=== PATIENT | male | born 1985 | race Caucasian/White ===

== ENCOUNTER 2023-06-18 08:37 | Emergency (ER) | payer MEDICARE, SELFPAY ==
[2023-06-18 08:43] VITALS: BP 135/88; PULSE 117; RESP 20; TEMP 36.3; O2SAT 99
--- NOTE | 2023-06-18 08:44 | PC.NURSE ---
Male pt here for suicidal thoughts. Pt placed in paper scrubs, personal belongings placed in med room.
[2023-06-18 09:05] LABS: Appearance Urine Clear (Clear); Bilirubin Urine Negative (Negative); Blood Urine Negative (Negative); Color Urine Light Yellow (Yellow); Glucose Urine UA Negative (Negative); Ketones Urine Negative (Negative); Leukocyte Esterase Ur Negative LEU/UL (Negative); Nitrate Urine Negative (Negative); Protein Urine Negative (Negative); Urobilinogen Urine 0.2 mg/dL (0.2-1.0)
[2023-06-18 09:11] LABS: Amphetamine Screen Urine Negative (Negative); Barbiturate Screen Urine Negative (Negative); Benzodiazepines Screen Urine Negative (Negative); Cannabinoid Screen Urine Negative (Negative); Cocaine Screen Urine Negative (Negative); Methadone Screen Urine Negative (Negative); Opiate Screen Urine Negative (Negative); Phencyclidine Screen Urine Negative (Negative)
[2023-06-18 09:13] LABS: Basophils Absolute Auto 0.01 K/mm3 (0.00-0.10); Basophils Percent Auto 0.2 % (0.0-1.0); Eosinophils Absolute Auto 0.01 K/mm3 (0.02-0.50); Eosinophils Percent Auto 0.2 % (1.0-6.0); Hematocrit 43.3 % (40.0-54.0); Hemoglobin 15.2 g/dL (14.0-18.0); Immature Granulocyte Absolute 0.02 K/mm3 (0.00-0.00); Immature Granulocyte Percent A 0.4 % (0.0-0.0); Lymphocytes Absolute Auto 0.74 K/mm3 (1.10-4.50); Mean Corpuscular HGB Conc 35.1 g/dL (32.0-36.0); Mean Corpuscular Hemoglobin 32.3 pg (27.0-31.0); Mean Corpuscular Volume 91.9 fL (78.0-102.0); Mean Platelet Volume 9.5 fl (8.7-11.0); Monocytes Absolute Auto 0.62 K/mm3 (0.10-0.90); Monocytes Percent Auto 11.8 % (2.0-11.0); Neutrophils Absolute Auto 3.9 K/mm3 (1.7-7.2); Neutrophils Percent Auto 73.4 % (50.0-70.0); Platelet Count Result 191 K/mm3 (150-420); Red Blood Count 4.71 M/mm3 (4.70-6.10); Red Cell Distribution Width 12.8 % (11.6-14.4); White Blood Count 5.3 K/mm3 (4.8-10.8)
[2023-06-18 09:17] LABS: Add Urine Microscopic? NO
--- NOTE | 2023-06-18 09:19 | ED.GENADULT ---
HPI - General Adult General Chief complaint: Psychiatric Symptoms Stated complaint: Mental evaluation Time Seen by Provider: 06/18/23 08:54 History of Present Illness HPI narrative: Tirso is a 37M with a PMH of SI, schitzoaffective disorder, and ADHD that presented to the ED with SI. He has been having worsening thoughts for weeks. He has been off his meds as well. He denied any other pain or medical concern. Related Data Home Medications Medication Instructions Recorded Confirmed escitalopram oxalate 10 mg tablet 10 mg PO DAILY 06/18/23 06/18/23 (Lexapro) gabapentin 300 mg capsule 300 mg PO TID 06/18/23 06/18/23 haloperidol 10 mg tablet 10 mg PO HS 06/18/23 06/18/23 haloperidol 5 mg tablet 10 mg PO BID 06/18/23 06/18/23 propranolol 20 mg tablet 20 mg PO TID 06/18/23 06/18/23 Allergies Allergy/AdvReac Type Severity Reaction Status Date / Time No Known Allergies Allergy Verified 06/18/23 09:06 Review of Systems Review of Systems: All systems reviewed & are unremarkable except as noted in HPI and below [facility] Social History Social History Substance use type: marijuana Exam Const: General: cooperative, healthy appearing, comfortable, no acute distress, well developed, alert, awake and Physically active Orientation/consciousness: oriented to person, oriented to place and oriented to time HENMT: Head: normal to inspection, normocephalic and atraumatic Ears: hearing grossly normal bilaterally and external ears normal Face/Nose/Sinus: Normal external nose present Eyes: General: appearance normal, both eyes and all related structures Periorbital: periorbital findings normal Sclera: sclerae normal Pupils: Equal, round and reactive pupils present Neck: Neck: normal visual inspection Chest: Chest palpation & inspection: normal inspection of the chest Resp: Effort & Inspection: normal respiratory effort, able to speak in complete sentences and no respiratory distress Auscultation: clear to auscultation bilaterally Cardio: Jugular venous distension: no JVD Rate: regular rate Rhythm: regular rhythm GI: Inspection: normal to inspection GI Palp: Yes Soft to palpation Auscultation: normal bowel sounds Skin: General skin exam: normal color and no rashes or lesions noted Neuro: General: oriented to person, oriented to place and oriented to time Cranial nerves: Yes Equal, round and reactive pupils present Extrem: General: normal to inspection Psych: Mental Status: mental status grossly normal Affect: Sad affect present Attitude: cooperative Course Course Emergency Course: Ordered labs and EKG EKG showed sinus tachycardia with a rate of 104, LAD and signs of LVH but no ST elevation/depression Labs wnl. [facility]. [facility] agreed with placement and he was transferred to [place] for psychiatry services. Vital Signs Vital signs: Vital Signs Temperature 97.4 F L 06/18/23 08:43 Pulse Rate 117 H 06/18/23 08:43 Respiratory Rate 20 06/18/23 08:43 Blood Pressure 135/88 06/18/23 08:43 Pulse Oximetry 99 06/18/23 08:43 Oxygen Delivery Room Air 06/18/23 08:43 Temperature 98.1 F 06/18/23 16:55 Pulse Rate 92 06/18/23 16:55 Respiratory Rate 20 06/18/23 16:55 Blood Pressure 128/82 06/18/23 16:55 Pulse Oximetry 99 06/18/23 16:55 Oxygen Delivery Room Air 06/18/23 16:55 Medical Decision Making Vital Signs Vital Signs: Vital Signs Temperature 97.4 F L 06/18/23 08:43 Pulse Rate 117 H 06/18/23 08:43 Respiratory Rate 20 06/18/23 08:43 Blood Pressure 135/88 06/18/23 08:43 Pulse Oximetry 99 06/18/23 08:43 Oxygen Delivery Room Air 06/18/23 08:43 Temperature 98.1 F 06/18/23 16:55 Pulse Rate 92 06/18/23 16:55 Respiratory Rate 06/18/23 16:55 Blood Pressure 128/82 06/18/23 16:55 Pulse Oximetry 99 06/18/23 16:55 Oxygen Delivery Room Air
[2023-06-18 09:39] LABS: Alanine Aminotransferase 30 U/L (16-63); Albumin Level 3.4 g/dL (3.4-5.0); Alkaline Phosphatase 66 U/L (46-116); Anion Gap 8 mmol/L (8-16); Aspartate Amino Transferase 23 U/L (15-37); Bilirubin,Total 0.3 mg/dL (0.00-1.00); Blood Urea Nitrogen 8 mg/dL (7-18); Calcium 8.2 mg/dL (8.5-10.1); Carbon Dioxide 31 mmol/L (21-32); Chloride 96 mmol/L (98-108); Estimated CRCL calculation 93 ml/min; Estimated Glomerular Filt Rate > 60; Glucose 191 mg/dL (70-99); Osmolality Calculated 283 mOsm/kg (285-295); Potassium 4.1 mmol/L (3.5-5.1); Sodium 135 mmol/L (136-145); Thyroid Stimulating Hormone 0.54 uIU/mL (0.36-3.74); Total Protein 6.9 g/dL (6.4-8.2)
[2023-06-18 09:40] LABS: Acetaminophen < 2 ug/mL (10-30); Ethanol < 3 mg/dL (0-6)
[2023-06-18 09:41] LABS: Salicylate 1.5 mg/dL (2.8-20.0)
[2023-06-18] MEDS: HALOPERIDOL 1 MG TABLET PO (09:55)
[2023-06-18 12:00] VITALS: BP 130/80; PULSE 108; RESP 20; O2SAT 99
[2023-06-18] MEDS: LORazepam (*CRX) 1 MG TABLET PO (12:49)
[2023-06-18] MEDS: NICOTINE (*PBKC) 14 MG PATCH 1 PATCH TRANSDERM (15:55)
[2023-06-18 16:11] LABS: SARS-CoV-2 Ag Negative (Negative)
[2023-06-18 16:55] VITALS: BP 128/82; PULSE 92; RESP 20; TEMP 36.7; O2SAT 99
== END 2023-06-18 16:55 ==
PROVIDERS: Emergency Provider Family Medicine
DX: F32.A Depression, unspecified (principal); R45.851 Suicidal ideations; Z79.899 Other long term (current) drug therapy; Z20.822 Contact with and (suspected) exposure to COVID-19
CPT/HCPCS: 36415; 80053; 80307; 81003; 84443; 85025; 87426; 93005; 99285; A9270

== ENCOUNTER 2023-07-05 07:54 | Emergency (ER) | payer MEDICARE, BC, SELFPAY ==
[2023-07-05] VITALS (7 sets, daily range): BP systolic 107–128; BP diastolic 69–95; PULSE 62–100; RESP 14–20; TEMP 36.2–36.9; O2SAT 97–100
--- NOTE | 2023-07-05 08:05 | ECG_ITS ---
Measurements Intervals [place] Rate: 74 P: 26 NV: 125 QRS: -36 QRSD: 93 T: -17 QT: 395 QTc: 439 Interpretive Statements SINUS RHYTHM LEFT AXIS DEVIATION [QRS AXIS < -30] VOLTAGE CRITERIA FOR LVH [MEETS CRITERIA IN ONE OF: R(aVL), S(V1), R(V5), R (V5/V6)+S(V1)] ST ELEVATION, CONSIDER INJURY PATTERN, EARLY REPOLARIZATION OR PERICARDITIS ABNORMAL ECG COMPARED TO ECG 06/18/2023 09:11:36 [address]M NOW PRESENT [address] (T WAVE) DEVIATION NOW PRESENT Electronically Signed On 07-05-2023 14:02:35 TILE [employer]OLDER HAND by Rian Navarrete M.D.
[2023-07-05 08:15] LABS: Appearance Urine Clear (Clear); Bilirubin Urine Negative (Negative); Blood Urine Negative (Negative); Color Urine Yellow (Yellow); Glucose Urine UA Negative (Negative); Ketones Urine Trace (Negative); Leukocyte Esterase Ur Negative LEU/UL (Negative); Nitrate Urine Negative (Negative); Protein Urine Negative (Negative); Specific Grav Ur <= 1.005 (1.010-1.020); Urobilinogen Urine 0.2 mg/dL (0.2-1.0); pH Urine 6.5 (5.0-8.0)
[2023-07-05] MEDS: ALPRAZolam (*CRX) 0.5 MG TABLET PO ×2 (08:20→14:51)
[2023-07-05 08:21] LABS: Amphetamine Screen Urine Negative (Negative); Barbiturate Screen Urine Negative (Negative); Benzodiazepines Screen Urine Negative (Negative); Cannabinoid Screen Urine Negative (Negative); Cocaine Screen Urine Negative (Negative); Methadone Screen Urine Negative (Negative); Opiate Screen Urine Negative (Negative); Phencyclidine Screen Urine Negative (Negative)
[2023-07-05] MEDS: NICOTINE (*PBKC) 21 MG PATCH 1 PATCH TRANSDERM (08:21)
[2023-07-05 08:22] LABS: Basophils Absolute Auto 0.03 K/mm3 (0.00-0.10); Basophils Percent Auto 0.4 % (0.0-1.0); Eosinophils Absolute Auto 0.13 K/mm3 (0.02-0.50); Eosinophils Percent Auto 1.7 % (1.0-6.0); Hematocrit 42.3 % (40.0-54.0); Hemoglobin 15.2 g/dL (14.0-18.0); Immature Granulocyte Absolute 0.02 K/mm3 (0.00-0.00); Immature Granulocyte Percent A 0.3 % (0.0-0.0); Lymphocytes Absolute Auto 1.89 K/mm3 (1.10-4.50); Lymphocytes Percent Auto 24.1 % (18.0-42.0); Mean Corpuscular HGB Conc 35.9 g/dL (32.0-36.0); Mean Corpuscular Hemoglobin 32.6 pg (27.0-31.0); Mean Corpuscular Volume 90.8 fL (78.0-102.0); Mean Platelet Volume 9.5 fl (8.7-11.0); Monocytes Percent Auto 6.4 % (2.0-11.0); Neutrophils Absolute Auto 5.3 K/mm3 (1.7-7.2); Neutrophils Percent Auto 67.1 % (50.0-70.0); Platelet Count Result 234 K/mm3 (150-420); Red Blood Count 4.66 M/mm3 (4.70-6.10); Red Cell Distribution Width 11.9 % (11.6-14.4); White Blood Count 7.8 K/mm3 (4.8-10.8)
[2023-07-05 08:24] LABS: Add Urine Microscopic? YES; Bacteria Urine Rare /hpf; RBC Urine None seen /hpf (0-2); WBC Urine None seen /hpf (0-3)
[2023-07-05 08:38] LABS: Alanine Aminotransferase 43 U/L (16-63); Albumin Level 3.7 g/dL (3.4-5.0); Alkaline Phosphatase 80 U/L (46-116); Anion Gap 10 mmol/L (8-16); Aspartate Amino Transferase 15 U/L (15-37); Bilirubin,Total 0.5 mg/dL (0.00-1.00); Blood Urea Nitrogen 11 mg/dL (7-18); Calcium 8.7 mg/dL (8.5-10.1); Carbon Dioxide 27 mmol/L (21-32); Chloride 95 mmol/L (98-108); Estimated CRCL calculation 99 ml/min; Estimated Glomerular Filt Rate > 60; Glucose 161 mg/dL (70-99); Osmolality Calculated 276 mOsm/kg (285-295); Potassium 3.9 mmol/L (3.5-5.1); Sodium 132 mmol/L (136-145); Total Protein 7.3 g/dL (6.4-8.2)
[2023-07-05 08:39] LABS: Ethanol < 3 mg/dL (0-6)
[2023-07-05 08:59] LABS: Thyroid Stimulating Hormone Reflex 0.79 u/IU/mL (0.36-3.74)
[2023-07-05 09:00] LABS: SARS-CoV-2 RNA PCR Negative (Negative)
[2023-07-05 09:03] LABS: Influenza A QL RT-PCR Negative (Negative); Influenza B QL RT-PCR Negative (Negative); RSV RNA, RT-PCR Negative (Negative)
--- NOTE | 2023-07-05 10:17 | ED.PSYCH ---
HPI - Psych General Chief Complaint: Psychiatric Symptoms Stated Complaint: suicidal thoughts Time Seen by Provider: 07/05/23 08:05 Source: patient Mode of arrival: ambulatory Limitations: no limitations History of Present Illness HPI Narrative: This is a 37-year-old male with some history of bipolar disorder and depression recently released from [facility], and has been having suicidal ideation since his release. Patient does have patient does have an appointment scheduled but is in a week at [facility] and has been having pervasive thoughts of suicide without a clear plan. Otherwise there is no chest pain no shortness of breath no fever chills no abdominal pain. MD complaint: suicidal ideation and feels depressed Onset (ago): day(s) Duration: constant History of same: Yes Relieving factors: none Exacerbating factors: none Associated psychiatric symptoms: depression and suicidal ideation Associated symptoms: denies other symptoms If self harm: admits thoughts of self harm Related Data Home Medications Medication Instructions Recorded Confirmed escitalopram oxalate 10 mg tablet 10 mg PO DAILY 06/18/23 06/18/23 (Lexapro) gabapentin 300 mg capsule 300 mg PO TID 06/18/23 06/18/23 haloperidol 10 mg tablet 10 mg PO HS 06/18/23 06/18/23 haloperidol 5 mg tablet 10 mg PO BID 06/18/23 06/18/23 propranolol 20 mg tablet 20 mg PO TID 06/18/23 06/18/23 Allergies Allergy/AdvReac Type Severity Reaction Status Date / Time No Known Allergies Allergy Verified 07/05/23 08:12 Review of Systems Review of Systems: All systems reviewed & are unremarkable except as noted in HPI and below PMFSH Past Medical History Medical History Bipolar disorder Social History Social History Substance use type: marijuana Exam Const: General: no acute distress Nutritional Appearance: well nourished Orientation/consciousness: patient oriented x3 Limitations: no limitations Neck: Neck: normal visual inspection, no lymphadenopathy and no meningeal signs Chest: Chest palpation & inspection: normal inspection of the chest Resp: Effort & Inspection: normal respiratory effort Auscultation: clear to auscultation bilaterally Cardio: Rate: regular rate Rhythm: regular rhythm GI: GI Palp: Yes Soft to palpation Auscultation: normal bowel sounds Skin: General skin exam: normal color Rashes: no rashes Neuro: General: patient oriented x3, moves all extremities, no meningeal signs and no focal motor deficits Psych: Affect: Sad affect present Course Course Emergency Course: patient labs an EKG reviewed and within normal limits mental health here to evaluate patient for further evaluation and treatment. patient after evaluation has been accepted for further evaluation at [facility]. Vital Signs Vital signs: Vital Signs Temperature 36.2 C L 07/05/23 07:54 Pulse Rate 83 07/05/23 07:54 Respiratory Rate 20 07/05/23 07:54 Blood Pressure 107/95 H 07/05/23 07:54 Pulse Oximetry 100 07/05/23 07:54 Oxygen Delivery Room Air 07/05/23 07:54 Temperature 36.6 C 07/05/23 14:52 Pulse Rate 87 07/05/23 14:52 Respiratory Rate 16 07/05/23 14:52 Blood Pressure 124/87 07/05/23 14:52 Pulse Oximetry 100 07/05/23 14:52 Oxygen Delivery Room Air 07/05/23 14:52 MDM - Psych Lab Data 07/05/23 08:17 07/05/23 08:17 Labs: Lab Results 07/05/23 07/05/23 Range/Units 08:06 08:17 WBC 7.8 (4.8-10.8) K/mm3 RBC 4.66 L (4.70-6.10) M/mm3 Hgb 15.2 (14.0-18.0) g/dL Hct 42.3 (40.0-54.0) % MCV 90.8 (78.0-102.0) fL MCH 32.6 H (27.0-31.0) pg MCHC 35.9 (32.0-36.0) g/dL RDW 11.9 (11.6-14.4) % Plt Count 234 (150-420) K/mm3 MPV 9.5 (8.7-11.0) fl Immature Gran % (Auto) 0.3 H (0.0-0.0) % Neut % (Auto) 67.1 (50
== END 2023-07-05 18:23 ==
PROVIDERS: Emergency Provider Emergency Medicine; PCP Nurse Practitioner Family
DX: R45.89 Other symptoms and signs involving emotional state (principal); F31.9 Bipolar disorder, unspecified; Z20.822 Contact with and (suspected) exposure to COVID-19; Z79.899 Other long term (current) drug therapy
CPT/HCPCS: 36415; 80053; 80307; 81001; 84443; 85025; 87637; 93005; 99285; A9270

== ENCOUNTER 2023-07-15 07:58 | Emergency (ER) | payer MEDICARE, SELFPAY ==
[2023-07-15 08:04] VITALS: BP 154/104; PULSE 74; RESP 20; TEMP 36.8; O2SAT 99
--- NOTE | 2023-07-15 08:24 | ED.ALLEREA ---
HPI - Allergic Reaction General Chief complaint: Allergic Reaction Stated complaint: restless legs; anxiety Time Seen by Provider: 07/15/23 08:11 Source: patient Mode of arrival: ambulatory Limitations: no limitations History of Present Illness HPI narrative: Patient is a 37-year-old male who was on Haldol. He has a psychiatrist. He is here with restless leg complaints. Onset (ago): day(s) (3) Exposure: medication ( Haldol without anticholinergic for 1 year) Symptoms: other ( restless legs) Severity: moderate Treatment prior to arrival: none Previous Allergic Reaction History: none Related Data Home Medications Medication Instructions Recorded Confirmed escitalopram oxalate 10 mg tablet 10 mg PO DAILY 06/18/23 07/15/23 (Lexapro) gabapentin 300 mg capsule 300 mg PO TID 06/18/23 07/15/23 haloperidol 10 mg tablet 10 mg PO HS 06/18/23 07/15/23 propranolol 20 mg tablet 20 mg PO TID 06/18/23 07/15/23 bupropion HCl 300 mg 24 hr tablet, 300 mg PO DAILY 07/15/23 07/15/23 extended release buspirone 10 mg tablet 10 mg PO BID 07/15/23 07/15/23 escitalopram oxalate 10 mg tablet 10 mg PO DAILY 07/15/23 07/15/23 venlafaxine 75 mg capsule,extended 75 mg PO QAM 07/15/23 07/15/23 release 24 hr Allergies Allergy/AdvReac Type Severity Reaction Status Date / Time No Known Allergies Allergy Verified 07/15/23 08:07 Review of Systems Review of Systems: All systems reviewed & are unremarkable except as noted in HPI and below Constitutional: Constitutional: Reports no additional constitutional complaints Eyes: Eyes: Reports no additional eye complaints ENT: Reports system reviewed and no additional complaints, except as documented Cardiovascular: Cardiovascular: Reports no additional cardiovascular complaints Respiratory: Respiratory: Reports no additional respiratory complaints Gastrointestinal: Gastrointestinal: Reports no additional gastrointestinal complaints Genitourinary: Genitourinary: Reports no additional male genitourinary complaints Musculoskeletal: Musculoskeletal: Reports no additional musculoskeletal complaints Integumentary/Breasts: Skin/Breast: Reports system reviewed and no additional complaints, except as docu Neurologic: Reports system reviewed and no additional complaints, except as documented Psychiatric: Psychiatric: Reports no additional psychiatric complaints Endocrine: Endocrine: Reports no additional endocrine complaints Hematologic/Lymphatic: Hematologic/Lymphatic: Reports no additional hematologic/lymphatic complaints Allergic/Immunologic: Allergic/Immunologic: Reports no additional allergic/immunologic complaints [facility] Past Medical History Medical History Bipolar disorder Social History Social History Substance use type: marijuana Exam Const: General: healthy appearing Nutritional Appearance: well nourished Orientation/consciousness: patient oriented x3 HENMT: Head: normal to inspection Ears: external ears normal Face/Nose/Sinus: Normal external nose present Eyes: Conjunctivae: conjunctivae normal Pupils: Equal, round and reactive pupils present EOM: EOMs intact bilaterally Neck: Neck: normal visual inspection Chest: Chest palpation & inspection: normal inspection of the chest Resp: Effort & Inspection: normal respiratory effort and not labored Auscultation: clear to auscultation bilaterally and no crackles Cardio: Rate: regular rate Rhythm: regular rhythm Heart sounds: no murmurs GI: Inspection: non-distended GI Palp: Yes Soft to palpation and No Tenderness to palpation present (GI) Auscultation: normal bowel sounds : General: Yes bladder normal to palpation Back/Spine/Pelvis: Back: no CVA tenderness Skin: General skin exam: normal color Rashes: no rashes Wounds: no wounds Neuro: General: patient oriented x3 Cranial nerves: Yes Nysta
[2023-07-15] MEDS: diphenhydrAMINE HCl INJ 50 MG/ML VIAL 25 MG IM (08:43)
[2023-07-15 09:00] VITALS: BP 149/101; PULSE 81
== END 2023-07-15 09:00 | disposition home or self-care (01) ==
PROVIDERS: Emergency Provider Emergency Medicine; PCP Nurse Practitioner Family
DX: G25.71 Drug induced akathisia (principal); T43.4X5A Adverse effect of butyrophenone and thiothixene neuroleptics, initial encounter; Z79.899 Other long term (current) drug therapy
CPT/HCPCS: 96372; 99283; J1200

== ENCOUNTER 2023-08-02 19:05 | Emergency (ER) | payer MEDICARE, SELFPAY ==
--- NOTE | 2023-08-02 19:19 | ECG_ITS ---
Measurements Intervals [place] Rate: 77 P: 63 [place]: 139 QRS: -37 QRSD: 94 T: 18 QT: 391 QTc: 445 Interpretive Statements SINUS RHYTHM LEFT AXIS DEVIATION INCOMPLETE RIGHT BUNDLE BRANCH BLOCK VOLTAGE CRITERIA FOR LVH MINIMAL Q WAVES- HIGH LATERAL LEADS BASELINE ARTIFACT- V3 BORDERLINE ECG COMPARED TO ECG 07/05/2023 08:07:23 NO SIGNIFICANT CHANGES Electronically Signed On 08-02-2023 19:54:39 CDT by Eldon Barrios D.O.
[2023-08-02 19:26] VITALS: BP 108/88; PULSE 90; RESP 18; TEMP 37; O2SAT 97
--- NOTE | 2023-08-02 19:26 | ED.ANXIETY ---
HPI - Anxiety General Chief Complaint: Anxiety Stated Complaint: Panic Attack Time Seen by Provider: 08/02/23 19:12 Source: patient Mode of arrival: ambulatory Limitations: no limitations History of Present Illness HPI narrative: This is a 37-year-old male who presents with panic attacks after his father had a brief illness and in the hospital and has been having trouble falling asleep, the patient does have a history of depression anxiety otherwise no suicidal ideation does have palpitations with no chest pain no shortness of breath no fever chills. complaint: anxiety Onset (ago): hour(s) Symptoms: palpitations Quality: intermittent Place: home History of similar episodes: Yes Provoking factors: emotional stress Related Data Home Medications Medication Instructions Recorded Confirmed escitalopram oxalate 10 mg tablet 10 mg PO DAILY 06/18/23 08/02/23 (Lexapro) haloperidol 10 mg tablet 10 mg PO HS 06/18/23 08/02/23 Allergies Allergy/AdvReac Type Severity Reaction Status Date / Time No Known Allergies Allergy Verified 08/02/23 19:19 Review of Systems Review of Systems: All systems reviewed & are unremarkable except as noted in HPI and below PMFSH Past Medical History Medical History Bipolar disorder Social History Social History Substance use type: marijuana Exam Const: General: no acute distress Nutritional Appearance: well nourished Orientation/consciousness: patient oriented x3 Limitations: no limitations Resp: Effort & Inspection: normal respiratory effort Auscultation: clear to auscultation bilaterally Cardio: Rate: regular rate Rhythm: regular rhythm GI: GI Palp: Yes Soft to palpation Auscultation: normal bowel sounds Skin: General skin exam: normal color Rashes: no rashes Neuro: General: patient oriented x3 and moves all extremities Extrem: General: normal to inspection Psych: Mental Status: mental status grossly normal Affect: Anxious affect present Course Course Emergency Course: Patient having grieving disorder after his father EKG with no abnormalities patient did receive a dose of 0.5 Xanax which did help his panic/ anxiety. Critical Care Time Critical Care Time Critical Care Time: No Discharge Plan Discharge Clinical Impression: Acute anxiety, Panic disorder, Grieving Patient Disposition: Home, Self-Care Condition: Stable Instructions: Antibiotic Form, Grief and Loss (ED), Panic Disorder (ED), Anxiety (ED) Additional Instructions: advised patient to take medicine as prescribed and follow with primary within the next 2 to 3 days for further evaluation treatment Prescriptions: New alprazolam [Xanax] 0.5 mg tablet 0.5 mg PO BID PRN (Reason: anxiety) Qty: 14 0RF No Action haloperidol 10 mg tablet 10 mg PO HS escitalopram oxalate [Lexapro] 10 mg tablet 10 mg PO DAILY Follow-up/Referrals: Sheri Grimes NUTRITION AND DIETETICS INSTRUCTOR [Primary Care Provider] -
[2023-08-02] MEDS: ALPRAZolam (*CRX) 0.5 MG TABLET PO (19:31)
[2023-08-02 19:43] VITALS: PULSE 89; RESP 16; O2SAT 100
== END 2023-08-02 19:43 | disposition home or self-care (01) ==
PROVIDERS: Emergency Provider Emergency Medicine; PCP Nurse Practitioner Family
DX: F41.9 Anxiety disorder, unspecified (principal); F41.0 Panic disorder [episodic paroxysmal anxiety]; F43.21 Adjustment disorder with depressed mood; Z79.899 Other long term (current) drug therapy
CPT/HCPCS: 93005; 99283; A9270

== ENCOUNTER 2023-08-04 15:51 | Emergency (ER) | payer MEDICARE, SELFPAY ==
[2023-08-04 15:54] VITALS: BP 135/88; PULSE 84; RESP 19; TEMP 36.2; O2SAT 98
--- NOTE | 2023-08-04 15:54 | ED.ANXIETY ---
HPI - Anxiety General Chief Complaint: Anxiety Stated Complaint: PANIC ATTACK Time Seen by Provider: 08/04/23 15:53 Source: patient Mode of arrival: ambulatory History of Present Illness HPI narrative: This is a 37-year-old male with history of bipolar disorder on Haldol patient presents because of anxiety and was recently seen 2 days ago and was prescribed Xanax, told the nurse that he threw his Xanax away, and told me that he lost his Xanax. Advised that he follows up with his primary/ psychiatry for further treatment, patient is not suicidal. There is no chest pain no shortness of breath no abdominal pain no fever chills complaint: anxiety Onset (ago): day(s) Provoking factors: emotional stress Related Data Home Medications Medication Instructions Recorded Confirmed escitalopram oxalate 10 mg tablet 10 mg PO DAILY 06/18/23 08/04/23 (Lexapro) haloperidol 10 mg tablet 10 mg PO HS 06/18/23 08/04/23 bupropion HCl 300 mg 24 hr tablet, 300 mg PO DAILY 08/04/23 08/04/23 extended release Allergies Allergy/AdvReac Type Severity Reaction Status Date / Time No Known Allergies Allergy Verified 08/04/23 15:52 Review of Systems Review of Systems: All systems reviewed & are unremarkable except as noted in HPI and below PMFSH Past Medical History Medical History Bipolar disorder Social History Social History Substance use type: prescription drug Exam Const: General: no acute distress Nutritional Appearance: well nourished Limitations: no limitations Chest: Chest palpation & inspection: normal inspection of the chest Resp: Effort & Inspection: normal respiratory effort Auscultation: clear to auscultation bilaterally Cardio: Rate: regular rate Rhythm: regular rhythm GI: GI Palp: Yes Soft to palpation Neuro: General: patient oriented x3, moves all extremities, no meningeal signs and no focal motor deficits Extrem: General: normal to inspection Psych: Affect: Anxious affect present Course Course Emergency Course: advised patient that he needs to follow up with his Primary/ Psychiatry continue his Haldol and will give a dose of p.o. Xanax here in the ER but will not prescribe any medication to his pharmacy. Critical Care Time Critical Care Time Critical Care Time: No Discharge Plan Discharge Clinical Impression: Bipolar disorder, Anxiety Condition: Stable Instructions: Antibiotic Form, Anxiety (ED) Additional Instructions: advised follow-up with primary as soon as possible for further evaluation treatment and possible referral to Psychiatry. Prescriptions: No Action bupropion HCl 300 mg tablet extended release 24 hr 300 mg PO DAILY haloperidol 10 mg tablet 10 mg PO HS escitalopram oxalate [Lexapro] 10 mg tablet 10 mg PO DAILY alprazolam [Xanax] 0.5 mg tablet 0.5 mg PO BID PRN (Reason: anxiety) Qty: 14 0RF Follow-up/Referrals: Sheri Grimes N[employer]K BAND MAKER [Primary Care Provider] - Time of Disposition: 15:59
--- NOTE | 2023-08-04 16:08 | PC.NURSE ---
Patient states he walked to the ED and is walking home. Xanax safe to give.
[2023-08-04] MEDS: ALPRAZolam (*CRX) 0.5 MG TABLET PO (16:09)
[2023-08-04 16:34] VITALS: BP 135/88; PULSE 84; RESP 19; TEMP 36.2; O2SAT 98
== END 2023-08-04 16:34 | disposition home or self-care (01) ==
PROVIDERS: Emergency Provider Emergency Medicine; PCP Nurse Practitioner Family
DX: F31.9 Bipolar disorder, unspecified (principal); F41.9 Anxiety disorder, unspecified; Z79.899 Other long term (current) drug therapy
CPT/HCPCS: 99283; A9270

== ENCOUNTER 2023-08-07 10:11 | Emergency (ER) | payer MEDICARE, SELFPAY ==
[2023-08-07 10:16] VITALS: BP 152/114; PULSE 97; RESP 20; TEMP 36.8; O2SAT 97
[2023-08-07 10:17] VITALS: BP 152/114; PULSE 97; RESP 20; TEMP 36.8; O2SAT 97
--- NOTE | 2023-08-07 10:20 | ED.GENADULT ---
HPI - General Adult General Chief complaint: Anxiety Stated complaint: Panic Attack Time Seen by Provider: 08/07/23 10:15 History of Present Illness HPI narrative: This is a 37-year-old male with history of anxiety and bipolar disorder presenting for an anxiety attack. Started 2 hours prior to arrival. Patient was trying to not complete hospital since she has been here multiple times for the same complaint over last week. Patient had a prescription for Xanax which he either lost threw away he is unsure. Patient denies SI HI. This is the patient's typical anxiety attack. patient had an appointment today to establish primary care but was canceled by the clinic. Related Data Home Medications Medication Instructions Recorded Confirmed escitalopram oxalate 10 mg tablet 10 mg PO DAILY 06/18/23 08/07/23 (Lexapro) haloperidol 10 mg tablet 10 mg PO HS 06/18/23 08/07/23 Allergies Allergy/AdvReac Type Severity Reaction Status Date / Time No Known Allergies Allergy Verified 08/07/23 10:16 [facility] Past Medical History Medical History Bipolar disorder Social History Social History Substance use type: prescription drug Exam Narrative: APPEARANCE: No apparent distress. Head: atraumatic. EYES: EOMI, NOSE: Atraumatic NECK: Trachea midline RESPIRATORY: No increased rate of breathing CTAB CARDIOVASCULAR: RRR, ABDOMINAL: Non-distended MUSCULOSKELETAl: No obvious deformities NEURO: Alert. Moving 4/4 extremities SKIN:: Warm, dry. Normal color PSYCHIATRIC: anxious Course Vital Signs Vital signs: Vital Signs Temperature 98.3 F 08/07/23 10:16 Pulse Rate 97 08/07/23 10:16 Respiratory Rate 20 08/07/23 10:16 Blood Pressure 152/114 H 08/07/23 10:16 Pulse Oximetry 97 08/07/23 10:16 Oxygen Delivery Room Air 08/07/23 10:16 Temperature 98.3 F 08/07/23 10:17 Pulse Rate 97 08/07/23 10:17 Respiratory Rate 20 08/07/23 10:17 Blood Pressure 152/114 H 08/07/23 10:17 Pulse Oximetry 97 08/07/23 10:17 Oxygen Delivery Room Air 08/07/23 10:17 Medical Decision Making MDM Narrative Medical decision making narrative: -Course: 37-year-old with history of anxiety presenting an anxiety attack. Given his home dose of Xanax. Patient discharged instructed follow-up with primary care physician. -DDX includes but is not limited to: Anxiety, panic disorder, -Co-morbidities complicating care: anxiety, bipolar disorder -Social determinants of health: disabled due to psychiatric illness, lives alone -External Chart Review: review of previous ER visits for identical presentation -Interventions: 0.5 mg p.o. Xanax -Shared decision making / Disposition: discharged Vital Signs Vital Signs: Vital Signs Temperature 98.3 F 08/07/23 10:16 Pulse Rate 97 08/07/23 10:16 Respiratory Rate 20 08/07/23 10:16 Blood Pressure 152/114 H 08/07/23 10:16 Pulse Oximetry 97 08/07/23 10:16 Oxygen Delivery Room Air 08/07/23 10:16 Temperature 98.3 F 08/07/23 10:17 Pulse Rate 97 08/07/23 10:17 Respiratory Rate 20 08/07/23 10:17 Blood Pressure 152/114 H 08/07/23 10:17 Pulse Oximetry 97 08/07/23 10:17 Oxygen Delivery Room Air 08/07/23 10:17 Discharge Plan Discharge Clinical Impression: Acute anxiety Patient Disposition: Home, Self-Care Condition: Stable Instructions: Antibiotic Form, Anxiety (ED) Additional Instructions: please follow-up with your primary care physician for further management. Prescriptions: No Action haloperidol 10 mg tablet 10 mg PO HS escitalopram oxalate [Lexapro] 10 mg tablet 10 mg PO DAILY alprazolam [Xanax] 0.5 mg tablet 0.5 mg PO BID PRN (Reason: anxiety) Qty: 14 0RF Follow-up/Referrals: Sheri Grimes NP [Primary Care Provider] - 2 Days (Establish pcp. Anxiety)
[2023-08-07] MEDS: ALPRAZolam (*CRX) 0.5 MG TABLET PO (10:27)
[2023-08-07 10:40] VITALS: BP 151/88; PULSE 81; RESP 18; O2SAT 99
== END 2023-08-07 10:40 | disposition home or self-care (01) ==
LOC: CHSED 10:36
PROVIDERS: Emergency Provider Emergency Medicine; PCP Nurse Practitioner Family
DX: F41.9 Anxiety disorder, unspecified (principal); F31.9 Bipolar disorder, unspecified
CPT/HCPCS: 99283; A9270

== ENCOUNTER 2023-08-07 17:48 | Emergency (ER) | payer MEDICARE, SELFPAY ==
[2023-08-07 17:52] VITALS: BP 114/70; PULSE 97; RESP 18; TEMP 36.6; O2SAT 97
--- NOTE | 2023-08-07 17:58 | ED.GENADULT ---
HPI - General Adult General Chief complaint: Psychiatric Symptoms Stated complaint: Suicidal ideation History of Present Illness HPI narrative: This is a 37 male history anxiety bipolar disorder presenting for suicidal ideation. Patient was seen in our emergency department earlier today requesting more Xanax for panic disorder He was given 1 po dose of xanax and given a prescription for hydroxyzine. patient said that did not help his anxiety. Now he is saying he is suicidal. He says he will jump into traffic. Patient says he is embarrassed that he keeps having to come to the emergency department to ask for xanax. Patient was given a prescription for 14 xanax on 08/01. He filled the script prescription then returned on 08/03 for saying that he lost the pills. Patient was transferred to [facility] on 07/05/2023 for depression/suicidal ideation. Related Data Home Medications Medication Instructions Recorded Confirmed escitalopram oxalate 10 mg tablet 10 mg PO DAILY 06/18/23 08/07/23 (Lexapro) haloperidol 10 mg tablet 10 mg PO HS 06/18/23 08/07/23 Allergies Allergy/AdvReac Type Severity Reaction Status Date / Time No Known Allergies Allergy Verified 08/07/23 17:53 [facility] Past Medical History Medical History Bipolar disorder Social History Social History Substance use type: prescription drug Exam Narrative: APPEARANCE: No apparent distress. Head: atraumatic. EYES: EOMI, NOSE: Atraumatic NECK: Trachea midline RESPIRATORY: No increased rate of breathing CARDIOVASCULAR: RRR, ABDOMINAL: Non-distended MUSCULOSKELETAl: No obvious deformities NEURO: Alert. Moving 4/4 extremities SKIN:: Warm, dry. Normal color PSYCHIATRIC: Anxious appearing Course Vital Signs Vital signs: Vital Signs Temperature 97.8 F 08/07/23 17:52 Pulse Rate 97 08/07/23 17:52 Respiratory Rate 18 08/07/23 17:52 Blood Pressure 114/70 08/07/23 17:52 Pulse Oximetry 97 08/07/23 17:52 Oxygen Delivery Room Air 08/07/23 17:52 Temperature 97.8 F 08/07/23 23:00 Pulse Rate 72 08/07/23 23:00 Respiratory Rate 18 08/07/23 23:00 Blood Pressure 107/67 08/07/23 23:00 Pulse Oximetry 98 08/07/23 23:00 Oxygen Delivery Room Air 08/07/23 23:00 Medical Decision Making MDM Narrative Medical decision making narrative: -Course: 37-year-old male presenting ED for suicidal ideation. patient is medically cleared for crisis of the evaluation. Patient was evaluated by crisis team and will be transferred to a psychiatric hospital. Accepted by Dr. Mesfin jiménez. -DDX includes but is not limited to: Suicidal ideation, depression, anxiety, benzodiazepine dependence, malingering/ secondary gain -Co-morbidities complicating care: anxiety, bipolar disorder -Social determinants of health: unemployed due to mental illness lives in his father's house his father recently -External Chart Review: review of ER visits on 06/18/2023, 07/05/2023, 07/15/23, 08/02/23, 08/04/23 -Independent interpretation of studies: labs reviewed -Discussion of Management/Consultants: crisis Center -Interventions: Haldol 5mg, [id number] -Shared decision making / Disposition: psych transfer. Vital Signs Vital Signs: Vital Signs Temperature 97.8 F 08/07/23 17:52 Pulse Rate 97 08/07/23 17:52 Respiratory Rate 18 08/07/23 17:52 Blood Pressure 114/70 08/07/23 17:52 Pulse Oximetry 97 08/07/23 17:52 Oxygen Delivery Room Air 08/07/23 17:52 Temperature 97.8 F 08/07/23 23:00 Pulse Rate 72 08/07/23 23:00 Respiratory Rate 18 08/07/23 23:00 Blood Pressure 107/67 08/07/23 23:00 Pulse Oximetry 98 08/07/23 23:00 Oxygen Delivery Room Air 08/07/23 23:00 Lab Data 08/07/23 18:09 08/07/23 18:09 Labs: Lab Results 08/07/23 08/07/23
[2023-08-07 18:10] VITALS: BP 96/60; PULSE 83; RESP 16; TEMP 36.3; O2SAT 98
[2023-08-07 18:12] LABS: Basophils Absolute Auto 0.02 K/mm3 (0.00-0.10); Basophils Percent Auto 0.3 % (0.0-1.0); Eosinophils Absolute Auto 0.25 K/mm3 (0.02-0.50); Eosinophils Percent Auto 3.7 % (1.0-6.0); Hematocrit 40.8 % (40.0-54.0); Hemoglobin 14.2 g/dL (14.0-18.0); Immature Granulocyte Absolute 0.02 K/mm3 (0.00-0.00); Immature Granulocyte Percent A 0.3 % (0.0-0.0); Lymphocytes Absolute Auto 2.87 K/mm3 (1.10-4.50); Mean Corpuscular HGB Conc 34.8 g/dL (32-36); Mean Corpuscular Hemoglobin 32.6 pg (27.0-31.0); Mean Corpuscular Volume 93.8 fL (78.0-102.0); Mean Platelet Volume 9.2 fl (8.7-11.0); Monocytes Absolute Auto 0.56 K/mm3 (0.10-0.90); Monocytes Percent Auto 8.2 % (2.0-11.0); Neutrophils Absolute Auto 3.11 K/mm3 (1.70-7.20); Neutrophils Percent Auto 45.5 % (50.0-70.0); Platelet Count Result 215 K/mm3 (150-420); Red Blood Count 4.35 M/mm3 (4.70-6.10); Red Cell Distribution Width 11.8 % (11.6-14.4); White Blood Count 6.8 K/mm3 (4.8-10.8)
[2023-08-07 18:25] LABS: Appearance Urine Clear (Clear); Bilirubin Urine Negative (Negative); Blood Urine Negative (Negative); Color Urine Light Yellow (Yellow); Glucose Urine UA Negative (Negative); Ketones Urine Negative (Negative); Leukocyte Esterase Ur Negative LEU/UL (Negative); Nitrate Urine Negative (Negative); Protein Urine Negative (Negative); Specific Grav Ur <= 1.005 (1.010-1.020); Urobilinogen Urine 0.2 mg/dL (0.2-1.0)
[2023-08-07 18:27] LABS: Add Urine Microscopic? NO
[2023-08-07 18:32] LABS: Amphetamine Screen Urine Negative (Negative); Barbiturate Screen Urine Negative (Negative); Benzodiazepines Screen Urine Negative (Negative); Cannabinoid Screen Urine Positive (Negative); Cocaine Screen Urine Negative (Negative); Methadone Screen Urine Negative (Negative); Opiate Screen Urine Negative (Negative); Phencyclidine Screen Urine Negative (Negative)
--- NOTE | 2023-08-07 18:33 | PC.NURSE ---
1800 - erp at bedside examining pt. erp asked are you suicidal . pt responded I can be if I don't get some ativan . pt taken to room 5. 1805 - pt changed into paper clothing and belongings removed and secured. 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 pt states he will throw himself into traffic if he gets discharged again without something stronger than the hydoxyzine. sitter at bedside.
[2023-08-07 18:39] LABS: Alanine Aminotransferase 54 U/L (16-63); Albumin Level 3.7 g/dL (3.4-5.0); Alkaline Phosphatase 89 U/L (46-116); Anion Gap 12 mmol/L (8-16); Aspartate Amino Transferase 17 U/L (15-37); Bilirubin,Total 0.3 mg/dL (0.00-1.00); Blood Urea Nitrogen 7 mg/dL (7-18); Carbon Dioxide 28 mmol/L (21-32); Chloride 104 mmol/L (98-108); Estimated Glomerular Filt Rate > 60; Glucose 96 mg/dL (70-99); Osmolality Calculated 296 mOsm/kg (285-295); Potassium 3.6 mmol/L (3.5-5.1); Salicylate 4.4 mg/dL (2.8-20.0); Sodium 144 mmol/L (136-145); Thyroid Stimulating Hormone 0.75 uIU/mL (0.36-3.74); Total Protein 7.2 g/dL (6.4-8.2)
[2023-08-07 18:40] LABS: Acetaminophen < 2 ug/mL (10-30); Ethanol < 3 mg/dL (0-6)
[2023-08-07 18:56] LABS: SARS-CoV-2 RNA PCR Negative (Negative)
[2023-08-07 18:57] LABS: Influenza A QL RT-PCR Negative (Negative); Influenza B QL RT-PCR Negative (Negative); RSV RNA, RT-PCR Negative (Negative)
--- NOTE | 2023-08-07 19:21 | PC.NURSE ---
1:1 safety and occupational health manager remains line of site. [facility] en route to ED for eval. Pt aware. Pt voices no needs. Warm blanket provided. Room check complete.
--- NOTE | 2023-08-07 19:50 | PC.NURSE ---
[facility] [place] at bedside performing assesment.
--- NOTE | 2023-08-07 20:15 | PC.NURSE ---
Perla, from [facility], provided with chart for bed search. PT aware will be placed inpatient. Pt still speaking with staff from [facility] at this time. Sitter remains at bedside for 1:1 observation. No unnecessary items in room.
[2023-08-07] MEDS: LORazepam INJ (*CRX) 2 MG/ML VIAL IM (20:40)
[2023-08-07] MEDS: HALOPERIDOL LACTATE 5 MG/ML VIAL IM (20:40)
--- NOTE | 2023-08-07 21:24 | PC.NURSE ---
[facility] in [facility] did not receive chart from [facility]. Will refax chart to [phone].
--- NOTE | 2023-08-07 21:46 | PC.NURSE ---
PT has been accepted to [facility]. Facesheet faxed to admission at this time as requested and then will provide packet to nurses on floor. Awaiting bed assignment, accepting physician name, and nurse to nurse report at this time.
--- NOTE | 2023-08-07 22:54 | PC.NURSE ---
[facility] called and is unable to transport the patient. Will try [facility]
[2023-08-07 23:00] VITALS: BP 107/67; PULSE 72; RESP 18; TEMP 36.6; O2SAT 98
== END 2023-08-07 23:23 ==
PROVIDERS: Emergency Provider Emergency Medicine; PCP Nurse Practitioner Family
DX: F41.9 Anxiety disorder, unspecified (principal); F31.9 Bipolar disorder, unspecified; Z20.822 Contact with and (suspected) exposure to COVID-19
CPT/HCPCS: 36415; 80053; 80307; 81003; 84443; 85025; 87637; 96372; 99283; 99285; A9270; J1630; J2060

== ENCOUNTER 2023-08-11 10:12 | Emergency (ER) | payer MEDICARE, SELFPAY ==
[2023-08-11 10:13] VITALS: BP 130/96; PULSE 80; RESP 20; TEMP 36.9; O2SAT 98
--- NOTE | 2023-08-11 10:14 | ED.ANXIETY ---
HPI - Anxiety General Chief Complaint: Anxiety Stated Complaint: PANIC ATTACK Time Seen by Provider: 08/11/23 10:13 Source: patient Mode of arrival: ambulatory Limitations: no limitations History of Present Illness HPI narrative: Patient is a 37-year-old male with recurrent anxiety issues. He was recently admitted to inpatient and now discharged on Zoloft. He lost his father in the past year. This is his main stimulus of anxiety and depression. Is not suicidal at this time. MD complaint: anxiety Onset (ago): day(s) Symptoms: dyspnea ( Resolved at this time) Severity: moderate Quality: constant Place: home History of similar episodes: Yes Provoking factors: emotional stress Relieving factors: nothing Exacerbating factors: nothing Associated symptoms: denies other symptoms Related Data Home Medications Medication Instructions Recorded Confirmed escitalopram oxalate 10 mg tablet 10 mg PO DAILY 06/18/23 08/11/23 (Lexapro) haloperidol 10 mg tablet 10 mg PO HS 06/18/23 08/11/23 Allergies Allergy/AdvReac Type Severity Reaction Status Date / Time No Known Allergies Allergy Verified 08/11/23 10:17 Review of Systems Review of Systems: All systems reviewed & are unremarkable except as noted in HPI and below Constitutional: Constitutional: Reports no additional constitutional complaints Eyes: Eyes: Reports no additional eye complaints ENT: Reports system reviewed and no additional complaints, except as documented Cardiovascular: Cardiovascular: Reports no additional cardiovascular complaints Respiratory: Respiratory: Reports no additional respiratory complaints Gastrointestinal: Gastrointestinal: Reports no additional gastrointestinal complaints Genitourinary: Genitourinary: Reports no additional male genitourinary complaints Musculoskeletal: Musculoskeletal: Reports no additional musculoskeletal complaints Integumentary/Breasts: Skin/Breast: Reports system reviewed and no additional complaints, except as docu Neurologic: Reports system reviewed and no additional complaints, except as documented Psychiatric: Psychiatric: Reports no additional psychiatric complaints Endocrine: Endocrine: Reports no additional endocrine complaints Hematologic/Lymphatic: Hematologic/Lymphatic: Reports no additional hematologic/lymphatic complaints Allergic/Immunologic: Allergic/Immunologic: Reports no additional allergic/immunologic complaints PMFSH Past Medical History Medical History Bipolar disorder Social History Social History Substance use type: unknown Exam Const: General: healthy appearing Nutritional Appearance: well nourished Orientation/consciousness: patient oriented x3 HENMT: Head: normal to inspection Ears: external ears normal Face/Nose/Sinus: Normal external nose present Eyes: Conjunctivae: conjunctivae normal Pupils: Equal, round and reactive pupils present EOM: EOMs intact bilaterally Neck: Neck: normal visual inspection Chest: Chest palpation & inspection: normal inspection of the chest Resp: Effort & Inspection: normal respiratory effort and not labored Auscultation: clear to auscultation bilaterally Cardio: Rate: regular rate Rhythm: regular rhythm Heart sounds: no murmurs GI: Inspection: non-distended GI Palp: Yes Soft to palpation and No Tenderness to palpation present (GI) Auscultation: normal bowel sounds : General: Yes bladder normal to palpation Back/Spine/Pelvis: Back: no CVA tenderness Skin: General skin exam: normal color Rashes: no rashes Wounds: no wounds Neuro: General: patient oriented x3 Cranial nerves: Yes Nystagmus not present Speech: normal speech Extrem: General: normal to inspection Psych: Mental Status: mental status grossly normal Affect: normal affect Attitude: cooperative Course Vital Signs Vital signs: Vital Signs
[2023-08-11] MEDS: clonazePAM (*CRX) 0.5 MG TABLET 1 MG PO (10:44)
== END 2023-08-11 10:48 | disposition home or self-care (01) ==
LOC: CHSED 10:46
PROVIDERS: Emergency Provider Emergency Medicine
DX: F41.9 Anxiety disorder, unspecified (principal); F31.9 Bipolar disorder, unspecified
CPT/HCPCS: 99283; A9270

== ENCOUNTER 2023-10-17 07:31 | Emergency (ER) | payer MEDICARE, SELFPAY ==
[2023-10-17] VITALS (18 sets, daily range): BP systolic 133–171; BP diastolic 84–105; PULSE 80–92; RESP 18–20; TEMP 36.6–36.8; O2SAT 96–98
--- NOTE | 2023-10-17 07:37 | ED.ALCOHOL ---
HPI - Alcohol General Chief Complaint: Headache Stated Complaint: n/v/d Time Seen by Provider: 10/17/23 07:37 Source: patient Mode of arrival: ambulatory Limitations: no limitations History of Present Illness HPI narrative: 37-year-old male with a history of bipolar disorder, anxiety, Chronic alcoholic presents to the ER with The patient has been drinking heavily for the past few months. He presents with -- not feeling well. -- headache- the headache is generalized. No focal neuro deficits. Present for a day. no nausea, vomiting, abdominal pain or diarrhea no chest pain or shortness of breath MD complaint: alcohol intoxication Chronic alcohol use: Yes Previous visits for alcohol intoxication: No Recent trauma: No Associated symptoms: diaphoresis Treatments prior to arrival: none Related Data Home Medications Medication Instructions Recorded Confirmed sertraline 100 mg tablet 100 mg PO DAILY 10/17/23 10/17/23 Allergies Allergy/AdvReac Type Severity Reaction Status Date / Time No Known Allergies Allergy Verified 08/11/23 10:17 Review of Systems Review of Systems: All systems reviewed & are unremarkable except as noted in HPI and below Constitutional: Constitutional: Reports as per HPI and Reports no additional constitutional complaints Eyes: Eyes: Reports as per HPI and Reports no additional eye complaints ENT: Reports system reviewed and no additional complaints, except as documented and Reports as per HPI Cardiovascular: Cardiovascular: Reports as per HPI and Reports no additional cardiovascular complaints Respiratory: Respiratory: Reports as per HPI and Reports no additional respiratory complaints Gastrointestinal: Gastrointestinal: Reports as per HPI and Reports no additional gastrointestinal complaints Genitourinary: Genitourinary: Reports no additional male genitourinary complaints and Reports as per HPI Musculoskeletal: Musculoskeletal: Reports no additional musculoskeletal complaints and Reports as per HPI Integumentary/Breasts: Skin/Breast: Reports system reviewed and no additional complaints, except as docu and Reports as per HPI Neurologic: Reports system reviewed and no additional complaints, except as documented, Reports as per HPI and Reports headache(s) Psychiatric: Psychiatric: Reports no additional psychiatric complaints and Reports as per HPI Endocrine: Endocrine: Reports no additional endocrine complaints and Reports as per HPI Hematologic/Lymphatic: Hematologic/Lymphatic: Reports no additional hematologic/lymphatic complaints and Reports as per HPI Allergic/Immunologic: Allergic/Immunologic: Reports no additional allergic/immunologic complaints and Reports as per HPI PMFSH Past Medical History Medical History Bipolar disorder Social History Social History (Updated 10/17/23 @ 07:48 by El Melissa MD) Alcohol intake: current Alcohol use details: drinks 5th of vodka daily Substance use type: unknown Exam Narrative: blood pressure- 145/103 with a heart rate of 87. Saturation is 98%. Const: General: no acute distress Nutritional Appearance: well nourished Orientation/consciousness: patient oriented x3 Limitations: no limitations HENMT: Head: normal to inspection Ears: external ears normal Face/Nose/Sinus: Normal external nose present Face and sinus: normal facial exam Mouth: Yes Normal oral and palatal mucosa present Throat: posterior oropharynx normal Eyes: Conjunctivae: conjunctivae normal Pupils: Equal, round and reactive pupils present EOM: EOMs intact bilaterally Direct Ophthalmoscopy: no photophobia Neck: Neck: normal visual inspection, no lymphadenopathy and no meningeal signs Chest: Chest palpation & inspection: normal inspection of the chest Resp: Effort & Inspection: normal respiratory effort Auscultation: clear to auscultation bilaterally Cardio: Rate: regular rate Rhyt
[2023-10-17] MEDS: LORazepam (*CRX) 1 MG TABLET PO ×2 (07:50→09:14)
[2023-10-17] MEDS: KETOROLAC 30 MG/ML VIAL (*BKC) IV PUSH (07:50)
[2023-10-17] MEDS: FAMOTIDINE 20 MG TABLET PO (07:50)
[2023-10-17] MEDS: THIAMINE HCL 100 MG TABLET PO (07:51)
[2023-10-17 08:13] LABS: Basophils Absolute Auto 0.01 K/mm3 (0.00-0.10); Basophils Percent Auto 0.3 % (0.0-1.0); Eosinophils Absolute Auto 0.13 K/mm3 (0.02-0.50); Eosinophils Percent Auto 3.3 % (1.0-6.0); Hematocrit 45.8 % (40.0-54.0); Hemoglobin 15.4 g/dL (14.0-18.0); Lymphocytes Absolute Auto 1.59 K/mm3 (1.10-4.50); Lymphocytes Percent Auto 39.8 % (18.0-42.0); Mean Corpuscular HGB Conc 33.6 g/dL (32-36); Mean Corpuscular Hemoglobin 32.1 pg (27.0-31.0); Mean Corpuscular Volume 95.4 fL (78.0-102.0); Mean Platelet Volume 9.3 fl (8.7-11.0); Monocytes Absolute Auto 0.33 K/mm3 (0.10-0.90); Monocytes Percent Auto 8.3 % (2.0-11.0); Neutrophils Absolute Auto 1.93 K/mm3 (1.70-7.20); Neutrophils Percent Auto 48.3 % (50.0-70.0); Platelet Count Result 194 K/mm3 (150-420); Red Cell Distribution Width 12.4 % (11.6-14.4)
[2023-10-17 08:22] LABS: INR 0.9; Prothrombin Time 10.3 Seconds (9.50-12.1)
[2023-10-17 08:35] LABS: Lipase 24 U/L (16-77); Magnesium 1.6 mg/dL (1.8-2.4); Troponin I 5.2 ng/L (0.00-60.4)
[2023-10-17 08:36] LABS: Anion Gap 16 mmol/L (4-12); Carbon Dioxide 25 mmol/L (21-32); Chloride 102 mmol/L (98-108); Potassium 3.9 mmol/L (3.5-5.1); Sodium 143 mmol/L (136-145)
[2023-10-17 08:37] LABS: Alanine Aminotransferase 26 U/L (16-63); Aspartate Amino Transferase 27 U/L (15-37); Bilirubin,Total 0.4 mg/dL (0.00-1.00); Blood Urea Nitrogen 16 mg/dL (7-18); Calcium 9.1 mg/dL (8.5-10.1); Estimated Glomerular Filt Rate > 60; Glucose 88 mg/dL (70-99); Osmolality Calculated 296 mOsm/kg (285-295)
[2023-10-17 08:38] LABS: Albumin Level 3.5 g/dL (3.4-5.0); Alkaline Phosphatase 99 U/L (46-116); Thyroid Stimulating Hormone 0.71 uIU/mL (0.36-3.74); Total Protein 7.4 g/dL (6.4-8.2)
[2023-10-17] MEDS: MAGNESIUM SULF 2 GM/WATER 50ML 2 GM/50 ML BAG IVPB (09:07)
== END 2023-10-17 11:43 | disposition home or self-care (01) ==
PROVIDERS: Emergency Provider Internal Medicine Critical Care Medicine
DX: R51.9 Headache, unspecified (principal); F10.930 Alcohol use, unspecified with withdrawal, uncomplicated; F31.9 Bipolar disorder, unspecified; F41.9 Anxiety disorder, unspecified
CPT/HCPCS: 36415; 80053; 83690; 83735; 84443; 84484; 85025; 85610; 96365; 96366; 96375; 99284; A9270; J1885; J3475

== ENCOUNTER 2023-10-21 08:34 | Emergency (ER) | payer MEDICARE, SELFPAY ==
[2023-10-21] VITALS (9 sets, daily range): BP systolic 128–158; BP diastolic 92–100; PULSE 78–99; RESP 14–20; TEMP 36.4; O2SAT 96–99
--- NOTE | 2023-10-21 09:13 | ED.GENADULT ---
HPI - General Adult General Chief complaint: Nausea/Vomiting/Diarrhea Stated complaint: nausea, vomiting, alcohol abuse Source: patient Mode of arrival: ambulatory Limitations: no limitations History of Present Illness HPI narrative: Patient is a 37-year-old male alcoholic who comes to the ER regularly for not feeling well after drinking a lot of alcohol. He is not having the shakes at this time. He is not having any seizures at this time. He drank last night. He does not usually get admitted for alcohol withdrawal. He generally just not feel well and have some nausea vomiting and GI upset. Onset (ago): hour(s) ( This morning when he awoke after drinking much last night) Location: abdomen ( GI upset) Radiation: non-radiation Severity: moderate Severity scale (1-10): 4 Quality: burning Pain Consistency: constant Relieving factors: none Exacerbating factors: none Associated symptoms: malaise and nausea/vomiting Treatments prior to arrival: none Related Data Home Medications Medication Instructions Recorded Confirmed sertraline 100 mg tablet 100 mg PO DAILY 10/17/23 10/17/23 Allergies Allergy/AdvReac Type Severity Reaction Status Date / Time No Known Allergies Allergy Verified 08/11/23 10:17 Review of Systems Review of Systems: All systems reviewed & are unremarkable except as noted in HPI and below Constitutional: Constitutional: Reports no additional constitutional complaints Eyes: Eyes: Reports no additional eye complaints ENT: Reports system reviewed and no additional complaints, except as documented Cardiovascular: Cardiovascular: Reports no additional cardiovascular complaints Respiratory: Respiratory: Reports no additional respiratory complaints Gastrointestinal: Gastrointestinal: Reports no additional gastrointestinal complaints Genitourinary: Genitourinary: Reports no additional male genitourinary complaints Musculoskeletal: Musculoskeletal: Reports no additional musculoskeletal complaints Integumentary/Breasts: Skin/Breast: Reports system reviewed and no additional complaints, except as docu Neurologic: Reports system reviewed and no additional complaints, except as documented Psychiatric: Psychiatric: Reports no additional psychiatric complaints Endocrine: Endocrine: Reports no additional endocrine complaints Hematologic/Lymphatic: Hematologic/Lymphatic: Reports no additional hematologic/lymphatic complaints Allergic/Immunologic: Allergic/Immunologic: Reports no additional allergic/immunologic complaints [facility] Past Medical History Medical History Bipolar disorder Social History Social History Alcohol intake: current Alcohol use details: drinks 5th of vodka daily Substance use type: unknown Exam Const: General: healthy appearing Nutritional Appearance: well nourished Orientation/consciousness: patient oriented x3 HENMT: Head: normal to inspection Ears: external ears normal Face/Nose/Sinus: Normal external nose present Eyes: Conjunctivae: conjunctivae normal Pupils: Equal, round and reactive pupils present EOM: EOMs intact bilaterally Neck: Neck: normal visual inspection Chest: Chest palpation & inspection: normal inspection of the chest Resp: Effort & Inspection: normal respiratory effort and not labored Auscultation: clear to auscultation bilaterally Cardio: Rate: regular rate Rhythm: regular rhythm Heart sounds: no murmurs GI: Inspection: non-distended GI Palp: Yes Soft to palpation and No Tenderness to palpation present (GI) Auscultation: normal bowel sounds : General: Yes bladder normal to palpation Back/Spine/Pelvis: Back: no CVA tenderness Skin: General skin exam: normal color Rashes: no rashes Wounds: no wounds Neuro: General: patient oriented x3 Cranial nerves: Yes Nystagmus not present Speech: normal speech Extrem: Genera
[2023-10-21] MEDS: SODIUM CHLORIDE 0.9% IV 1,000 ML 999 ML IV CONT (09:18)
[2023-10-21] MEDS: ONDANSETRON INJ 4 MG/2 ML VIAL IV PUSH (09:18)
[2023-10-21] MEDS: MAG HYDROX/ALUMINUM HYD/SIMETH 30 ML, PHENobarb/HYOSCY/ATROPINE/SCOP 32.4 MG, LIDOCAINE... PO (09:18)
[2023-10-21] MEDS: THIAMINE HCL 200 MG/2 ML VIAL 100 MG IV PUSH (09:23)
--- NOTE | 2023-10-21 09:35 | PC.NURSE ---
1745 pt states i just want to do better . discussed with pt local services and [facility] recovery program that is open to public to attend. pt asked what time does [facility] start today. informed pt services started at 9am. ipad provided and loaded for [facility] service this morning. pt listening to service.
[2023-10-21 09:57] LABS: Basophils Absolute Auto 0.02 K/mm3 (0.00-0.10); Basophils Percent Auto 0.3 % (0.0-1.0); Eosinophils Absolute Auto 0.07 K/mm3 (0.02-0.50); Hematocrit 46.2 % (40.0-54.0); Hemoglobin 14.6 g/dL (14.0-18.0); Immature Granulocyte Absolute 0.02 K/mm3 (0.00-0.00); Immature Granulocyte Percent A 0.3 % (0.0-0.0); Lymphocytes Absolute Auto 1.49 K/mm3 (1.10-4.50); Lymphocytes Percent Auto 21.6 % (18.0-42.0); Mean Corpuscular HGB Conc 31.6 g/dL (32-36); Mean Corpuscular Hemoglobin 31.4 pg (27.0-31.0); Mean Corpuscular Volume 99.4 fL (78.0-102.0); Mean Platelet Volume 9.5 fl (8.7-11.0); Monocytes Absolute Auto 0.31 K/mm3 (0.10-0.90); Monocytes Percent Auto 4.5 % (2.0-11.0); Neutrophils Absolute Auto 4.99 K/mm3 (1.70-7.20); Neutrophils Percent Auto 72.3 % (50.0-70.0); Platelet Count Result 179 K/mm3 (150-420); Red Blood Count 4.65 M/mm3 (4.70-6.10); Red Cell Distribution Width 12.9 % (11.6-14.4); White Blood Count 6.9 K/mm3 (4.8-10.8)
[2023-10-21 10:12] LABS: Alanine Aminotransferase 20 U/L (16-63); Albumin Level 3.6 g/dL (3.4-5.0); Alkaline Phosphatase 87 U/L (46-116); Anion Gap 8 mmol/L (4-12); Aspartate Amino Transferase 25 U/L (15-37); Bilirubin,Total 0.2 mg/dL (0.00-1.00); Blood Urea Nitrogen 13 mg/dL (7-18); Calcium 8.5 mg/dL (8.5-10.1); Carbon Dioxide 31 mmol/L (21-32); Chloride 101 mmol/L (98-108); Estimated CRCL calculation 102 ml/min; Estimated Glomerular Filt Rate > 60; Glucose 119 mg/dL (70-99); Magnesium 1.4 mg/dL (1.8-2.4); Osmolality Calculated 291 mOsm/kg (285-295); Potassium 4.7 mmol/L (3.5-5.1); Sodium 140 mmol/L (136-145); Total Protein 7.5 g/dL (6.4-8.2)
[2023-10-21] MEDS: MAGNESIUM SULF 2 GM/WATER 50ML 2 GM/50 ML BAG IVPB (10:30)
[2023-10-21 10:35] LABS: SARS-CoV-2 RNA PCR Negative (Negative)
[2023-10-21 10:40] LABS: Influenza A QL RT-PCR Negative (Negative); Influenza B QL RT-PCR Negative (Negative); RSV RNA, RT-PCR Negative (Negative)
== END 2023-10-21 11:15 | disposition home or self-care (01) ==
PROVIDERS: Emergency Provider Emergency Medicine
DX: K52.9 Noninfective gastroenteritis and colitis, unspecified (principal); E83.42 Hypomagnesemia; F10.20 Alcohol dependence, uncomplicated; F31.9 Bipolar disorder, unspecified; Z20.822 Contact with and (suspected) exposure to COVID-19
CPT/HCPCS: 36415; 80053; 83735; 85025; 87637; 96361; 96365; 96375; 99284; A9270; J2405; J3411; J3475; J7030

== ENCOUNTER 2023-11-08 10:32 | Emergency (ER) | payer MEDICARE, SELFPAY ==
[2023-11-08 10:47] VITALS: BP 136/96; PULSE 77; RESP 18; TEMP 36.8; O2SAT 98
--- NOTE | 2023-11-08 10:49 | ECG_ITS ---
Test Date: 2023-11-08 11:04:41 Measurements Intervals [place] Rate: 72 P: 55 AK: 112 QRS: -50 QRSD: 89 T: -9 QT: 390 QTc: 428 Interpretive Statements SINUS RHYTHM WITH SHORT AK INTERVAL POSSIBLE RIGHT VENTRICULAR CONDUCTION DELAY [RSR (QR) IN V1/V2] LEFT ANTERIOR FASCICULAR BLOCK [QRS AXIS <= -45, QR IN I, RS IN II] VOLTAGE CRITERIA FOR LVH [MEETS CRITERIA IN ONE OF: R(aVL), S(V1), R(V5), R(V5/V6)+S(V1)] ABNORMAL ECG No previous ECG available for comparison Electronically Signed On 11-09-2023 11:02:07 CDT by Rian Navarrete M.D.
--- NOTE | 2023-11-08 10:58 | PC.NURSE ---
took pt to bathroom; had change into si scrubs; collected his materials into bags; completed belongings list & set up observation sheet
[2023-11-08 10:59] LABS: Appearance Urine Clear (Clear); Bilirubin Urine Negative (Negative); Blood Urine Negative (Negative); Color Urine Yellow (Yellow); Glucose Urine UA Negative (Negative); Ketones Urine Negative (Negative); Leukocyte Esterase Ur Negative LEU/UL (Negative); Nitrate Urine Negative (Negative); Protein Urine Negative (Negative); Urobilinogen Urine 0.2 mg/dL (0.2-1.0)
[2023-11-08 11:02] LABS: Add Urine Microscopic? NO
[2023-11-08] MEDS: HALOPERIDOL 1 MG TABLET PO (11:03)
[2023-11-08 11:05] LABS: Amphetamine Screen Urine Negative (Negative); Barbiturate Screen Urine Negative (Negative); Benzodiazepines Screen Urine Negative (Negative); Cannabinoid Screen Urine Positive (Negative); Cocaine Screen Urine Negative (Negative); Methadone Screen Urine Negative (Negative); Opiate Screen Urine Negative (Negative); Phencyclidine Screen Urine Negative (Negative)
[2023-11-08 11:07] LABS: Basophils Absolute Auto 0.01 K/mm3 (0.00-0.10); Basophils Percent Auto 0.2 % (0.0-1.0); Eosinophils Percent Auto 1.7 % (1.0-6.0); Hematocrit 46.7 % (40.0-54.0); Hemoglobin 15.9 g/dL (14.0-18.0); Immature Granulocyte Absolute 0.01 K/mm3 (0.00-0.00); Immature Granulocyte Percent A 0.2 % (0.0-0.0); Lymphocytes Absolute Auto 1.52 K/mm3 (1.10-4.50); Lymphocytes Percent Auto 26.1 % (18.0-42.0); Mean Corpuscular Hemoglobin 31.9 pg (27.0-31.0); Mean Corpuscular Volume 93.6 fL (78.0-102.0); Mean Platelet Volume 9.8 fl (8.7-11.0); Monocytes Absolute Auto 0.44 K/mm3 (0.10-0.90); Monocytes Percent Auto 7.5 % (2.0-11.0); Neutrophils Absolute Auto 3.75 K/mm3 (1.70-7.20); Neutrophils Percent Auto 64.3 % (50.0-70.0); Platelet Count Result 216 K/mm3 (150-420); Red Blood Count 4.99 M/mm3 (4.70-6.10); Red Cell Distribution Width 12.5 % (11.6-14.4); White Blood Count 5.8 K/mm3 (4.8-10.8)
[2023-11-08 11:22] LABS: Alanine Aminotransferase 22 U/L (16-63); Albumin Level 3.5 g/dL (3.4-5.0); Alkaline Phosphatase 85 U/L (46-116); Anion Gap 7 mmol/L (4-12); Aspartate Amino Transferase 20 U/L (15-37); Bilirubin,Total 0.6 mg/dL (0.00-1.00); Blood Urea Nitrogen 10 mg/dL (7-18); Calcium 9.2 mg/dL (8.5-10.1); Carbon Dioxide 28 mmol/L (21-32); Chloride 100 mmol/L (98-108); Estimated CRCL calculation 117 ml/min; Estimated Glomerular Filt Rate > 60; Glucose 126 mg/dL (70-99); Osmolality Calculated 281 mOsm/kg (285-295); Potassium 4.1 mmol/L (3.5-5.1); Sodium 135 mmol/L (136-145); Total Protein 7.5 g/dL (6.4-8.2)
[2023-11-08 11:23] LABS: Ethanol < 3 mg/dL (0-6)
[2023-11-08 11:24] LABS: Acetaminophen < 2 ug/mL (10-30)
[2023-11-08 11:38] LABS: Thyroid Stimulating Hormone Reflex 0.61 u/IU/mL (0.36-3.74)
--- NOTE | 2023-11-08 11:49 | ED.PSYCH ---
HPI - Psych General Chief Complaint: Psychiatric Symptoms Stated Complaint: suicidal ideation Time Seen by Provider: 11/08/23 10:48 Source: patient Mode of arrival: ambulatory History of Present Illness HPI Narrative: this is a 37-year-old male with a history of bipolar disorder and depression with history of alcohol abuse presents presents to the emergency department stating that he feels suicidal and has had a suicidal plan as stated drinking himself to . Patient also has been having intrusive thoughts with a history of bipolar disorder which is causing him acute anxiety and depression. Patient has history of the same has been hospitalized in the past feels like his medication is not helping. Currently no other symptoms no chest pain or shortness of breath no fever chills no abdominal pain no nausea vomiting. MD complaint: suicidal ideation and feels depressed Onset (ago): day(s) Duration: constant History of same: Yes Relieving factors: none Context: recent alcohol abuse Related Data Home Medications Medication Instructions Recorded Confirmed sertraline 100 mg tablet 100 mg PO DAILY 10/17/23 11/08/23 Allergies Allergy/AdvReac Type Severity Reaction Status Date / Time No Known Allergies Allergy Verified 11/08/23 10:42 Review of Systems Review of Systems: All systems reviewed & are unremarkable except as noted in HPI and below PMFSH Past Medical History Medical History Bipolar disorder Social History Social History Alcohol intake: current Alcohol use details: drinks 5th of vodka daily Substance use type: methamphetamine Exam Const: General: no acute distress Nutritional Appearance: well nourished Orientation/consciousness: patient oriented x3 Limitations: no limitations Neck: Neck: normal visual inspection, no lymphadenopathy and no meningeal signs Chest: Chest palpation & inspection: normal inspection of the chest Resp: Effort & Inspection: normal respiratory effort Auscultation: clear to auscultation bilaterally Cardio: Rate: regular rate Rhythm: regular rhythm GI: GI Palp: Yes Soft to palpation Auscultation: normal bowel sounds Skin: General skin exam: normal color Rashes: no rashes Neuro: General: patient oriented x3, moves all extremities, no meningeal signs and no focal motor deficits Extrem: General: normal to inspection Psych: Affect: Sad affect present Course Course Emergency Course: Patient had EKG which shows sinus rhythm labs reviewed with no acute abnormalities, patient received Haldol 1mg for having intrusive thoughts. And mental health was consult and for evaluation of patient. patient assessed by mental health and was re-evaluated and currently wants help with alcohol detox and states that he is currently not having any suicidal thoughts or plans. Vital Signs Vital signs: Vital Signs Temperature 36.8 C 11/08/23 10:47 Pulse Rate 77 11/08/23 10:47 Respiratory Rate 18 11/08/23 10:47 Blood Pressure 136/96 H 11/08/23 10:47 Pulse Oximetry 98 11/08/23 10:47 Oxygen Delivery Room Air 11/08/23 10:47 Temperature 36.8 C 11/08/23 10:47 Pulse Rate 77 11/08/23 10:47 Respiratory Rate 18 11/08/23 10:47 Blood Pressure 136/96 H 11/08/23 10:47 Pulse Oximetry 98 11/08/23 10:47 Oxygen Delivery Room Air 11/08/23 10:47 MDM - Psych Lab Data 11/08/23 11:01 11/08/23 11:01 Labs: Lab Results 11/08/23 11/08/23 Range/Units 10:49 11:01 WBC 5.8 (4.8-10.8) K/mm3 RBC 4.99 (4.70-6.10) M/mm3 Hgb 15.9 (14.0-18.0) g/dL Hct 46.7 (40.0-54.0) % MCV 93.6 (78.0-102.0) fL MCH 31.9 H (27.0-31.0) pg MCHC 34.0 (32-36) g/dL RDW 12.5 (11.6-14.4) % Plt Count 216 (150-420) K/mm3 MPV 9.8 (8.7-11.0) fl Immature Gran % (Auto) 0.2 H (0.0-0.0) % Neut % (Auto)
[2023-11-08 12:28] VITALS: BP 112/102; PULSE 95; RESP 20; TEMP 36.6; O2SAT 97
[2023-11-08 13:35] VITALS: BP 139/92; PULSE 95; RESP 18; TEMP 36.2; O2SAT 96
== END 2023-11-08 13:35 | disposition home or self-care (01) ==
PROVIDERS: Emergency Provider Emergency Medicine
DX: F10.20 Alcohol dependence, uncomplicated (principal); Y90.0 Blood alcohol level of less than 20 mg/100 ml; F31.9 Bipolar disorder, unspecified; Z79.899 Other long term (current) drug therapy
CPT/HCPCS: 36415; 80053; 80307; 81003; 84443; 85025; 93005; 99284; A9270

== ENCOUNTER 2023-11-09 16:19 | Emergency (ER) | payer MEDICARE, SELFPAY ==
--- NOTE | 2023-11-09 16:42 | ED.GENADULT ---
HPI - General Adult General Chief complaint: Psychiatric Symptoms <Michael Chaudhary MD - Last Filed: 11/10/23 06:39> Stated complaint: suicidal ideation <Michael Chaudhary MD - Last Filed: 11/10/23 06:39> Time Seen by Provider: 11/10/23 07:26 <Michael Chaudhary MD - Last Filed: 11/10/23 06:39> History of Present Illness HPI narrative: This is a 37-year-old male well known to our emergency department for psych issues alcohol abuse. Patient was trying to steal liquor from a store when he was arrested by police. He then told police he was suicidal. he was then given the option [place] [facility] or going to the hospital for evaluation and chose the hospital. Patient says his plan is to drink himself to . When asked why he is suicidal the patient says that his life is not going well. He states he drinks all the time, he lives in a dirty house, he is anxious. He is not homicidal. He has been admitted multiple times psychiatric facilities this year. He says that they help but then he quickly falls back into his old habits. He says he has gone to the [facility] meeting in [place] [facility] once in the last 6 months. He is going to try to start going more. He has no physical complaints at this time. <Michael Chaudhary MD - Last Filed: 11/10/23 06:39> Related Data Home medications: Home Medications Medication Instructions Recorded Confirmed sertraline 100 mg tablet 100 mg PO DAILY 10/17/23 11/09/23 <Michael Chaudhary MD - Last Filed: 11/10/23 06:39> Allergies/adverse reactions: Allergies Allergy/AdvReac Type Severity Reaction Status Date / Time No Known Allergies Allergy Verified 11/09/23 16:43 <Michael Chaudhary MD - Last Filed: 11/10/23 06:39> [facility] Past Medical History Medical History: Medical History Alcoholism Bipolar disorder <Michael Chaudhary MD - Last Filed: 11/10/23 06:39> Social History Social History: Social History Alcohol intake: current Alcohol use details: drinks 5th of vodka daily Substance use type: marijuana and methamphetamine <Michael Chaudhary MD - Last Filed: 11/10/23 06:39> Exam Narrative: APPEARANCE: No apparent distress. A&O x4 Head: atraumatic. EYES: EOMI, NOSE: Atraumatic NECK: Trachea midline RESPIRATORY: No increased rate of breathing CARDIOVASCULAR: RRR, ABDOMINAL: Non-distended MUSCULOSKELETAl: No obvious deformities NEURO: Alert. Moving 4/4 extremities SKIN:: Warm, dry. Normal color PSYCHIATRIC: Normal affect <Michael Chaudhary MD - Last Filed: 11/10/23 06:39> Course Course Emergency Course: 0700: Signed out to the oncoming physician pending placement. <Michael Chaudhary MD - Last Filed: 11/10/23 06:39> 0700: Signed out to the oncoming physician pending placement. patient currently resting comfortably have Zoloft ordered which she takes 100mg daily, also for alcohol withdrawal ordered Librium 25 q.8 hours around the clock. Mental health evaluated and And excepted to [facility] accepting physician Dr. Mosqueda. <Scotty Dubois MD - Last Filed: 11/10/23 17:48> Vital Signs Vital signs: Vital Signs Temperature 36.8 C 11/09/23 16:53 Pulse Rate 76 11/09/23 16:53 Respiratory Rate 20 11/09/23 16:53 Blood Pressure 131/85 11/09/23 16:53 Pulse Oximetry 94 11/09/23 16:53 Oxygen Delivery Room Air 11/09/23 16:53 Temperature 36.1 C L 11/10/23 15:53 Pulse Rate 77 11/10/23 15:53 Respiratory Rate 20 11/10/23 15:53 Blood Pressure 129/92 H 11/10/23 15:53 Pulse Oximetry 97 11/10/23 15:53 Oxygen Delivery Room Air 11/10/23 15:53 <Michael Chaudhary MD - Last Filed: 11/10/23 06:39> Vital Signs Temperature 36.8 C 11/09/23 16:53 Pulse Rate 76 11/09/23 16:53 Respiratory Rate 20 11/09/23 16:53 Blood Pressure 131/85 11/09/23 16:53 Pulse Oximetry 94 0
[2023-11-09 16:53] VITALS: BP 131/85; PULSE 76; RESP 20; TEMP 36.8; O2SAT 94
[2023-11-09 16:59] LABS: Basophils Absolute Auto 0.02 K/mm3 (0.00-0.10); Basophils Percent Auto 0.3 % (0.0-1.0); Eosinophils Percent Auto 1.5 % (1.0-6.0); Hematocrit 43.3 % (40.0-54.0); Hemoglobin 14.7 g/dL (14.0-18.0); Immature Granulocyte Absolute 0.02 K/mm3 (0.00-0.00); Immature Granulocyte Percent A 0.3 % (0.0-0.0); Lymphocytes Percent Auto 35.8 % (18.0-42.0); Mean Corpuscular HGB Conc 33.9 g/dL (32-36); Mean Corpuscular Hemoglobin 31.9 pg (27.0-31.0); Mean Corpuscular Volume 93.9 fL (78.0-102.0); Mean Platelet Volume 9.9 fl (8.7-11.0); Monocytes Absolute Auto 0.45 K/mm3 (0.10-0.90); Monocytes Percent Auto 6.7 % (2.0-11.0); Neutrophils Absolute Auto 3.72 K/mm3 (1.70-7.20); Neutrophils Percent Auto 55.4 % (50.0-70.0); Platelet Count Result 205 K/mm3 (150-420); Red Blood Count 4.61 M/mm3 (4.70-6.10); Red Cell Distribution Width 12.6 % (11.6-14.4); White Blood Count 6.7 K/mm3 (4.8-10.8)
[2023-11-09 17:03] LABS: Appearance Urine Clear (Clear); Bilirubin Urine Negative (Negative); Blood Urine Negative (Negative); Color Urine Yellow (Yellow); Glucose Urine UA Negative (Negative); Ketones Urine Negative (Negative); Leukocyte Esterase Ur Negative LEU/UL (Negative); Nitrate Urine Negative (Negative); Protein Urine Negative (Negative); Specific Grav Ur 1.025 (1.010-1.020); Urobilinogen Urine 0.2 mg/dL (0.2-1.0)
[2023-11-09 17:07] LABS: Amphetamine Screen Urine Negative (Negative); Barbiturate Screen Urine Negative (Negative); Benzodiazepines Screen Urine Negative (Negative); Cannabinoid Screen Urine Positive (Negative); Cocaine Screen Urine Negative (Negative); Methadone Screen Urine Negative (Negative); Opiate Screen Urine Negative (Negative); Phencyclidine Screen Urine Negative (Negative)
[2023-11-09 17:11] LABS: Add Urine Microscopic? NO
[2023-11-09 17:25] LABS: Alanine Aminotransferase 21 U/L (16-63); Albumin Level 3.3 g/dL (3.4-5.0); Alkaline Phosphatase 79 U/L (46-116); Anion Gap 10 mmol/L (4-12); Aspartate Amino Transferase 15 U/L (15-37); Bilirubin,Total 0.3 mg/dL (0.00-1.00); Blood Urea Nitrogen 17 mg/dL (7-18); Calcium 9.4 mg/dL (8.5-10.1); Carbon Dioxide 26 mmol/L (21-32); Chloride 102 mmol/L (98-108); Estimated CRCL calculation 133 ml/min; Estimated Glomerular Filt Rate > 60; Ethanol 8 mg/dL (0-6); Glucose 113 mg/dL (70-99); Osmolality Calculated 288 mOsm/kg (285-295); Potassium 3.7 mmol/L (3.5-5.1); Salicylate 5.1 mg/dL (2.8-20.0); Sodium 138 mmol/L (136-145); Thyroid Stimulating Hormone 0.82 uIU/mL (0.36-3.74); Total Protein 7.2 g/dL (6.4-8.2)
[2023-11-09 17:26] LABS: Acetaminophen < 2 ug/mL (10-30)
[2023-11-09] MEDS: NICOTINE (*PBKC) 21 MG PATCH 1 PATCH TRANSDERM (18:24)
[2023-11-09] MEDS: hydrOXYzine HCL 25 MG TABLET PO (19:52)
--- NOTE | 2023-11-09 20:09 | PC.NURSE ---
Patient requesting something for ETOH withdrawal at this time. Patient was recently given medications to help with anxiety as requested earlier. Patient ignoring this RN as I went to educate the patient about the medications again that were given. Patient stated that he feels like he is losing his mind and cant get comfortable. Patient educated on ERPs decision to wait till medications that given have time to work. Patient ignored this RN and refused to acknowledge any of the education provided.
[2023-11-09 20:20] VITALS: BP 147/97; PULSE 63; RESP 18; TEMP 36.8; O2SAT 98
[2023-11-09 23:45] VITALS: BP 158/108; PULSE 67; RESP 18; TEMP 36.8; O2SAT 98
[2023-11-10] MEDS: QUEtiapine FUMARATE 25 MG TABLET 50 MG PO (00:12)
--- NOTE | 2023-11-10 00:49 | ECG_ITS ---
Test Date: 2023-11-10 00:57:56 Measurements Intervals [place] Rate: 62 P: 39 NJ: 122 QRS: -30 QRSD: 108 T: 14 QT: 413 QTc: 422 Interpretive Statements SINUS RHYTHM BORDERLINE LEFT AXIS DEVIATION [QRS AXIS < -20] VOLTAGE CRITERIA FOR LVH [MEETS CRITERIA IN ONE OF: R(aVL), S(V1), R(V5), R(V5/V6)+S(V1)] ABNORMAL ELECTROCARDIOGRAM Compared to ECG 11/08/2023 11:04:41 Short NJ interval no longer present Left anterior fascicular block no longer present Electronically Signed On 11-11-2023 08:52:31 CDT by Scotty Wells M.D.
[2023-11-10 01:42] LABS: Influenza A QL RT-PCR Negative (Negative); Influenza B QL RT-PCR Negative (Negative); RSV RNA, RT-PCR Negative (Negative); SARS-CoV-2 RNA PCR Negative (Negative)
[2023-11-10 04:00] VITALS: BP 137/97; PULSE 64; RESP 18; TEMP 36.7; O2SAT 97
[2023-11-10 07:53] VITALS: BP 133/99; PULSE 74; RESP 18; TEMP 36.5; O2SAT 98
--- NOTE | 2023-11-10 07:59 | PC.NURSE ---
0800: Pt is restless & is requesting meds for anxiety and alcohol withdrawal. Explained to pt that it has to go up chain of command before he is able to receive anything. Pt is understanding of protocol. Pt states that he is super hungry and would like a breakfast tray.
[2023-11-10] MEDS: chlordiazePOXIDE (*CRX) 25 MG CAPSULE PO ×2 (08:10→14:03)
[2023-11-10] MEDS: SERTRALINE HCL 50 MG TABLET 100 MG PO (08:24)
--- NOTE | 2023-11-10 08:26 | PC.NURSE ---
[id number] pt awake and asking for breakfast and asking for meds for anxiety and alcohol withdrawl ERP notified and orders received pt states he has been having suicidal thoughts for a very long time nothing has changed to day his plan is to drink himself to [facility] notified of BLESSINGS declining pt and new calls started this am packet was faxed to [facility] in [place]
--- NOTE | 2023-11-10 08:57 | PC.NURSE ---
0900: Pt is comfortably resting after given medications; no concerns at this time
--- NOTE | 2023-11-10 10:18 | PC.NURSE ---
1000: Pt is sleeping w/ occasional restlessness -> no concerns at this time
--- NOTE | 2023-11-10 10:40 | PC.NURSE ---
FOID REPORTING COMPLETED ON SUNDAY WHEN PT WAS SEE IN ER 11/07/21
--- NOTE | 2023-11-10 11:10 | PC.NURSE ---
1100: Pt is sleeping and resting comfortably; no concerns at this time
[2023-11-10 11:45] VITALS: BP 136/93; PULSE 81; RESP 16; TEMP 36.8; O2SAT 98
--- NOTE | 2023-11-10 11:48 | PC.NURSE ---
1200: pt just finished lunch and is resting comfortably. Q4 vitals just taken
--- NOTE | 2023-11-10 12:52 | PC.NURSE ---
1300: Pt is still resting comfortably; no concerns at this time
--- NOTE | 2023-11-10 13:40 | PC.NURSE ---
0803 [facility] will accept pt but have to have involuntary paperwork and so far unable to find transportation to go that far [facility] will continue looking stated they will not fill out involuntary paper work for voluntary admission 1230 chart faxed to [facility] 1330 [facility] faxed to [facility]
--- NOTE | 2023-11-10 14:00 | PC.NURSE ---
1400: Pt is restless & says that he is ready to be transported. No concerns at this time
--- NOTE | 2023-11-10 14:20 | PC.NURSE ---
1400: pt showered & was given fresh set of scrubs; during this time his room was cleaned and linen was changed
--- NOTE | 2023-11-10 14:55 | PC.NURSE ---
1500: Pt is resting at this time; no concerns at this point
[2023-11-10 15:53] VITALS: BP 129/92; PULSE 77; RESP 20; TEMP 36.1; O2SAT 97
--- NOTE | 2023-11-10 15:55 | PC.NURSE ---
1600: Pt is becoming restless; requested nicotine patch, but was informed that they are given every 24 hours; no concerns at this time
[2023-11-10] MEDS: NICOTINE (*PBKC) 21 MG PATCH 1 PATCH TRANSDERM (16:10)
--- NOTE | 2023-11-10 16:56 | PC.NURSE ---
1700: Pt is eating dinner; no concerns at this time
--- NOTE | 2023-11-10 17:00 | PC.NURSE ---
1514 [facility] called and interviewed pt 1650 [facility] accepted pt
--- NOTE | 2023-11-10 17:24 | PC.NURSE ---
1724 attempted to call report nurse stated he would call me back in 15 min
--- NOTE | 2023-11-10 17:43 | PC.NURSE ---
4048 nurse to nurse report given to evans amso
--- NOTE | 2023-11-10 18:03 | PC.NURSE ---
1800: amb arrived to transfer to different facility
--- NOTE | 2023-11-10 18:17 | PC.NURSE ---
181: pt left facility by jami
== END 2023-11-10 18:23 ==
PROVIDERS: Emergency Medicine; Emergency Provider Emergency Medicine
DX: F10.10 Alcohol abuse, uncomplicated (principal); Y90.0 Blood alcohol level of less than 20 mg/100 ml; F32.A Depression, unspecified; Z20.822 Contact with and (suspected) exposure to COVID-19
CPT/HCPCS: 36415; 80053; 80307; 81003; 84443; 85025; 87637; 93005; 99285; A9270

== ENCOUNTER 2023-11-28 09:25 | Emergency (ER) | payer MEDICARE, SELFPAY ==
[2023-11-28 09:32] VITALS: BP 160/100; PULSE 92; RESP 20; TEMP 36.3; O2SAT 98
--- NOTE | 2023-11-28 09:36 | ED.PSYCH ---
HPI - Psych General Chief Complaint: Psychiatric Symptoms Stated Complaint: suicidal ideation Time Seen by Provider: 11/28/23 09:32 Source: patient Mode of arrival: ambulatory Limitations: no limitations History of Present Illness HPI Narrative: 38-year-old male with a history of alcoholism, bipolar, anxiety, polysubstance abuse( amphetamine, marijuana) presents to the ER with -- depression with suicidal ideation. He wants to overdose on Advil. -- patient has auditory hallucinations. He hears voices commanding him to kill himself. Patient has had multiple prior ER visits for depression and suicidal ideation. patient has a history of drug abuse but denied recent drug use. Patient had some alcohol yesterday. Patient has a family history of depression with suicidal attempts. Two of his brothers Kill them cells from suicidal ideation. complaint: suicidal ideation and feels depressed Onset (ago): day(s) Duration: constant History of same: Yes Relieving factors: none Exacerbating factors: none Context: recent alcohol abuse Associated symptoms: denies other symptoms Treatments prior to arrival: none If self harm: admits thoughts of self harm Related Data Home Medications Medication Instructions Recorded Confirmed No Home Medications 11/28/23 11/28/23 Allergies Allergy/AdvReac Type Severity Reaction Status Date / Time No Known Allergies Allergy Verified 11/09/23 16:43 Review of Systems Review of Systems: All systems reviewed & are unremarkable except as noted in HPI and below Constitutional: Constitutional: Reports as per HPI and Reports no additional constitutional complaints Eyes: Eyes: Reports as per HPI and Reports no additional eye complaints ENT: Reports system reviewed and no additional complaints, except as documented and Reports as per HPI Cardiovascular: Cardiovascular: Reports as per HPI and Reports no additional cardiovascular complaints Respiratory: Respiratory: Reports as per HPI and Reports no additional respiratory complaints Gastrointestinal: Gastrointestinal: Reports as per HPI and Reports no additional gastrointestinal complaints Genitourinary: Genitourinary: Reports no additional male genitourinary complaints and Reports as per HPI Musculoskeletal: Musculoskeletal: Reports no additional musculoskeletal complaints and Reports as per HPI Integumentary/Breasts: Comments: Patient has abrasions and bilateral medial malleoli. [facility] Past Medical History Medical History Alcoholism Bipolar disorder Social History Social History Alcohol intake: current Alcohol use details: drinks 5th of vodka daily Substance use type: marijuana and methamphetamine Exam Narrative: Blood pressure 160/100 Const: General: no acute distress Orientation/consciousness: patient oriented x3 Limitations: no limitations HENMT: Head: normal to inspection Ears: external ears normal Face/Nose/Sinus: Normal external nose present Face and sinus: normal facial exam Mouth: Yes Normal oral and palatal mucosa present Throat: posterior oropharynx normal Eyes: Conjunctivae: conjunctivae normal Pupils: Equal, round and reactive pupils present EOM: EOMs intact bilaterally Direct Ophthalmoscopy: no photophobia Neck: Neck: normal visual inspection, no lymphadenopathy and no meningeal signs Chest: Chest palpation & inspection: normal inspection of the chest Resp: Effort & Inspection: normal respiratory effort Auscultation: clear to auscultation bilaterally Cardio: Rate: regular rate Rhythm: regular rhythm GI: GI Palp: Yes Soft to palpation Auscultation: normal bowel sounds Other: no tenderness/rigidity / rebound. : General: Yes no CVA tenderness Skin: General skin exam: normal color Other: Abrasions of his lower legs Neuro: General: patient orient
--- NOTE | 2023-11-28 09:38 | ECG_ITS ---
Test Date: 2023-11-28 10:23:35 Measurements Intervals [place] Rate: 85 P: 64 DC: 122 QRS: -49 QRSD: 93 T: 38 QT: 376 QTc: 448 Interpretive Statements SINUS RHYTHM POSSIBLE LEFT ATRIAL ENLARGEMENT INCOMPLETE RIGHT BUNDLE BRANCH BLOCK LEFT ANTERIOR FASCICULAR BLOCK VOLTAGE CRITERIA FOR LVH MINIMAL Q WAVES- HIGH LATERAL LEADS ABNORMAL ECG Compared to ECG 11/10/2023 00:57:56 Left anterior fascicular block now present Electronically Signed On 11-28-2023 10:24:45 CDT by Eldon Barrios D.O.
[2023-11-28 09:58] LABS: Basophils Absolute Auto 0.02 K/mm3 (0.00-0.10); Basophils Percent Auto 0.4 % (0.0-1.0); Eosinophils Percent Auto 3.7 % (1.0-6.0); Hematocrit 43.6 % (40.0-54.0); Hemoglobin 14.6 g/dL (14.0-18.0); Immature Granulocyte Absolute 0.04 K/mm3 (0.00-0.00); Immature Granulocyte Percent A 0.7 % (0.0-0.0); Lymphocytes Absolute Auto 1.24 K/mm3 (1.10-4.50); Lymphocytes Percent Auto 22.8 % (18.0-42.0); Mean Corpuscular HGB Conc 33.5 g/dL (32-36); Mean Corpuscular Volume 92.6 fL (78.0-102.0); Mean Platelet Volume 8.9 fl (8.7-11.0); Monocytes Absolute Auto 0.59 K/mm3 (0.10-0.90); Monocytes Percent Auto 10.8 % (2.0-11.0); Neutrophils Absolute Auto 3.36 K/mm3 (1.70-7.20); Neutrophils Percent Auto 61.6 % (50.0-70.0); Platelet Count Result 225 K/mm3 (150-420); Red Blood Count 4.71 M/mm3 (4.70-6.10); Red Cell Distribution Width 13.6 % (11.6-14.4); White Blood Count 5.5 K/mm3 (4.8-10.8)
[2023-11-28 10:20] LABS: Amphetamine Screen Urine Negative (Negative); Barbiturate Screen Urine Negative (Negative); Benzodiazepines Screen Urine Negative (Negative); Cannabinoid Screen Urine Negative (Negative); Cocaine Screen Urine Negative (Negative); Methadone Screen Urine Negative (Negative); Opiate Screen Urine Negative (Negative); Phencyclidine Screen Urine Negative (Negative)
[2023-11-28 10:29] LABS: Acetaminophen < 2 ug/mL (10-30); Alanine Aminotransferase 30 U/L (16-63); Albumin Level 3.1 g/dL (3.4-5.0); Alkaline Phosphatase 75 U/L (46-116); Anion Gap 13 mmol/L (4-12); Aspartate Amino Transferase 20 U/L (15-37); Bilirubin,Total 0.2 mg/dL (0.00-1.00); Blood Urea Nitrogen 8 mg/dL (7-18); Calcium 8.4 mg/dL (8.5-10.1); Carbon Dioxide 27 mmol/L (21-32); Chloride 100 mmol/L (98-108); Estimated CRCL calculation 140 ml/min; Estimated Glomerular Filt Rate > 60; Ethanol 91 mg/dL (0-6); Glucose 96 mg/dL (70-99); Osmolality Calculated 288 mOsm/kg (285-295); Potassium 3.5 mmol/L (3.5-5.1); Salicylate 2.8 mg/dL (2.8-20.0); Sodium 140 mmol/L (136-145); Thyroid Stimulating Hormone 0.21 uIU/mL (0.36-3.74); Total Protein 6.6 g/dL (6.4-8.2)
--- NOTE | 2023-11-28 10:34 | PC.NURSE ---
1030: Pt is resting comfortably w/ no safety concerns. Pt requested meal, pepsi, anxiety medication, and a call to his mother. I relayed that information to RN
[2023-11-28 10:50] LABS: Influenza A QL RT-PCR Negative (Negative); Influenza B QL RT-PCR Negative (Negative); RSV RNA, RT-PCR Negative (Negative); SARS-CoV-2 RNA PCR Negative (Negative)
--- NOTE | 2023-11-28 11:45 | PC.NURSE ---
1130: Pt is agitated about process. Discussed with pt that he is able to get food after being cleared. Asking for anti-psychotic medications and states No one will prescribe me any
[2023-11-28] MEDS: THIAMINE HCL 100 MG TABLET PO (12:02)
[2023-11-28] MEDS: LORazepam (*CRX) 1 MG TABLET 2 MG PO (12:02)
[2023-11-28 12:21] VITALS: BP 164/99; PULSE 84; RESP 18; TEMP 36.7; O2SAT 98
--- NOTE | 2023-11-28 12:26 | PC.NURSE ---
1230: Pt is eating second sandwich and second bag of chips; seems to be much more relaxed and less agitated; vitals taken at this time
--- NOTE | 2023-11-28 12:43 | PCCCNOTE ---
call placed to Arina Mark rn, care coordination regarding statements made by pt regarding withholding of disability funds. mother , aries ayon phone number given to arina.
--- NOTE | 2023-11-28 13:21 | PC.NURSE ---
1330:Pt resting comfortably while talking with [address] No safety concerns at this time.
--- NOTE | 2023-11-28 13:52 | PC.NURSE ---
call placed to [employer] for financial exploitation of disability funds, per Ruba, [facility] in [place] should be contacted to make a report and investigate financial exploitation.
--- NOTE | 2023-11-28 14:02 | PC.NURSE ---
call placed to [facility] spoke with Shanda, report information given for financial exploitation investigation. stated will speak with supervisor electronics testing and will investigate.
--- NOTE | 2023-11-28 14:39 | PC.NURSE ---
Addendum entered by Shereen Daly, PCT 11/28/23 14:43: 1430: Pt is agitated and restless at this time; is stating that he wants Haldol to help with voices in his head. Original Note: 1330: Pt is agitated and restless at this time; Is stating that he wants Haldol to help with voices in his head.
[2023-11-28 16:20] VITALS: BP 158/99; PULSE 90; RESP 20; TEMP 36.8; O2SAT 96
--- NOTE | 2023-11-28 16:20 | PC.NURSE ---
1330 pt requesting food and haldol, food given. will notify dr decker regarding medication request. 1430 pt requesting soda. resting per cot, sitter remains outside of room. 1445 pt laying on cot, eyes closed. 1500 pt up to bathroom and back to room 1545 pt at nurses station requesting haldol. explained doctor in room with pt at this time. 1600 pt at nurses station again. doctor in restroom 1615 dr decker notified of pt request for haldol.
--- NOTE | 2023-11-28 16:35 | PC.NURSE ---
1630: Pt is agitated & restless and states that he is still seeing visions and is unable to sleep or close his eyes without seeing things . Pt is extremely frustrated over this. He has moved from the bed to the chair and is unable to sit still. No safety concerns at this time.
[2023-11-28] MEDS: HALOPERIDOL 1 MG TABLET 10 MG PO (16:47)
--- NOTE | 2023-11-28 16:49 | PC.NURSE ---
haldol given per pt reuqest at this time. pt requesting ativan. will notify dr decker of pt request.
--- NOTE | 2023-11-28 16:50 | PC.NURSE ---
supper tray provided. pt has been eating since arrival 3 sandwiches 4 bag chips multiple soda.
--- NOTE | 2023-11-28 16:55 | PC.NURSE ---
pt informed doctor declined ativan or librium request at this time.
[2023-11-28 17:07] LABS: Bilirubin Urine Negative (Negative); Blood Urine Negative (Negative); Color Urine Yellow (Yellow); Glucose Urine UA Negative (Negative); Ketones Urine Trace (Negative); Leukocyte Esterase Ur Negative LEU/UL (Negative); Nitrate Urine Negative (Negative); Protein Urine Negative (Negative); Specific Grav Ur >= 1.030 (1.010-1.020); Urobilinogen Urine 0.2 mg/dL (0.2-1.0)
[2023-11-28 17:11] LABS: Add Urine Microscopic? YES; Amorphous Sediment Urine Heavy; Appearance Urine Cloudy (Clear); Bacteria Urine Trace /hpf; RBC Urine None seen /hpf (0-2); Squamous Epithelial Cell Urine Rare /hpf (Few); WBC Urine None seen /hpf (0-3)
--- NOTE | 2023-11-28 17:25 | PC.NURSE ---
called [facility] to give report, per REX Amador. they do not have pt packet yet and room has not been assigned. nurse will call for report when ready.
--- NOTE | 2023-11-28 17:41 | PC.NURSE ---
1740: Pt is resting comfortably & sleeping in bed; no safety concerns at this time
--- NOTE | 2023-11-28 18:34 | PC.NURSE ---
1830: Pt has been asleep since 1800; no safety concerns at this time
--- NOTE | 2023-11-28 19:10 | PC.NURSE ---
pt report to dandre abdi.
[2023-11-28 19:59] VITALS: BP 140/95; PULSE 80; RESP 18; TEMP 37.1; O2SAT 98
== END 2023-11-28 20:20 ==
PROVIDERS: Emergency Provider Internal Medicine Critical Care Medicine
DX: F32.A Depression, unspecified (principal); R45.851 Suicidal ideations; Z20.822 Contact with and (suspected) exposure to COVID-19
CPT/HCPCS: 36415; 80053; 80307; 81001; 84443; 85025; 87637; 93005; 99285; A9270

== ENCOUNTER 2023-12-10 09:33 | Emergency (ER) | payer MEDICARE, SELFPAY ==
[2023-12-10 09:33] VITALS: BP 151/107; PULSE 88; RESP 18; TEMP 36.6; O2SAT 100
--- NOTE | 2023-12-10 09:41 | ECG_ITS ---
Test Date: 2023-12-10 10:07:51 Measurements Intervals [place] Rate: 79 P: 61 NJ: 116 QRS: -52 QRSD: 92 T: 33 QT: 424 QTc: 486 Interpretive Statements SINUS RHYTHM WITH SHORT [place] INTERVAL LEFT ANTERIOR FASCICULAR BLOCK ABNORMAL ECG Compared to ECG 11/28/2023 10:23:35 NO SIGNIFICANT CHANGE Electronically Signed On 12-10-2023 11:33:56 CDT by Eldon Barrios D.O.
--- NOTE | 2023-12-10 09:50 | PC.NURSE ---
PT HAS BEEN CHANGED INTO [facility], BELONGINGS WERE SECURED, SITTER AT BEDSIDE. PT IS COOPERATIVE.
--- NOTE | 2023-12-10 09:50 | ED.PSYCH ---
HPI - Psych General Chief Complaint: Psychiatric Symptoms <Xavier Jones MD - Last Filed: 12/10/23 10:40> Stated Complaint: Anxiety <Xavier Jones MD - Last Filed: 12/10/23 10:40> Time Seen by Provider: 12/10/23 09:34 <Xavier Jones MD - Last Filed: 12/10/23 10:40> Source: patient <Xavier Jones MD - Last Filed: 12/10/23 10:40> Mode of arrival: ambulatory <Xavier Jones MD - Last Filed: 12/10/23 10:40> Limitations: no limitations <Xavier Jones MD - Last Filed: 12/10/23 10:40> History of Present Illness HPI Narrative: Patient is a 30-year-old male with a significant past medical history presents today for suicidal ideations. Patient has been here since hospital for and with the same suicidal ideations. This time he does have suicidal ideations and plan. He states that he has been feeling down lately and he has a plan to kill himself and slit his wrist. He just got out [facility] a week ago. He states he has been medically taking his medication as prescribed. <Xavier Jones MD - Last Filed: 12/10/23 10:40> MD complaint: suicidal ideation <Xavier Jones MD - Last Filed: 12/10/23 10:40> Related Data Home Medications: Home Medications Medication Instructions Recorded Confirmed buspirone 10 mg tablet 10 mg PO BID 12/10/23 12/11/23 celecoxib 200 mg capsule 200 mg PO DAILY 12/10/23 12/10/23 escitalopram oxalate 10 mg tablet 10 mg PO DAILY 12/10/23 12/10/23 gabapentin 300 mg capsule 600 mg PO TID 12/10/23 12/10/23 hydroxyzine HCl 10 mg tablet 10 mg PO PRN PRN Anxiety 12/10/23 12/10/23 olanzapine 5 mg tablet 5 mg PO DAILY 12/10/23 12/10/23 propranolol 20 mg tablet 20 mg PO TID 12/10/23 12/10/23 <Xavier Jones MD - Last Filed: 12/10/23 10:40> Allergies/Adverse Reactions: Allergies Allergy/AdvReac Type Severity Reaction Status Date / Time No Known Allergies Allergy Verified 12/10/23 09:58 <Xavier Jones MD - Last Filed: 12/10/23 10:40> [facility] Past Medical History Medical History: Medical History Alcoholism Bipolar disorder <Xavier Jones MD - Last Filed: 12/10/23 10:40> Social History Social History: Social History Alcohol intake: current Alcohol use details: drinks 5th of vodka daily Substance use type: does not use <Xavier Jones MD - Last Filed: 12/10/23 10:40> Course Course Emergency Course: 09:30 am 12/11/2023: I took over from the previous provider in the management of this patient. Please refer to their note for further details. In brief, the patient is a 38-year-old male with suicidal ideation and depression. He requires hospitalization. He has been assessed by behavioral health. He has been receiving Ativan 1 mg p.o. every 6 hours as needed for anxiety (he has received 3 doses already). He has never been in alcohol withdrawal. He had been hospitalized one week prior for behavioral health concerns. He is awaiting behavioral health hospitalization. Will place him on his behavioral health medications (buspirone, celecoxib, escitalopram, gabapentin, hydroxyzine prn, olanzapine, and propranolol). 10:25 am 12/11/2023: The patient reports chronic alcohol use, for number of years, and drinks whiskey, approximately 1 L every day, most recent intake was 2 days ago, 12/09/2023. He feels anxious and is afraid that he will withdrawal but has never had withdrawals in the past. He is jittery and tremulous. Will treat with Librium 25 mg p.o. t.i.d.. 14:30 12/11/2023: the patient has been accepted at [facility]; Dr Duke accepting. Transfer paperwork completed. He remains stable. <Marbin Mendez MD - Last Filed: 12/11/23 14:26> Vital Signs Vital signs: Vital Signs Temperature 36.6 C 12/10/23 09:33 Pulse Rate 88 12/10/23 09:33 Respiratory Rate 18 11/19
[2023-12-10 10:05] LABS: Appearance Urine Clear (Clear); Basophils Absolute Auto 0.04 K/mm3 (0.00-0.10); Basophils Percent Auto 0.8 % (0.0-1.0); Bilirubin Urine Negative (Negative); Blood Urine Negative (Negative); Color Urine Yellow (Yellow); Eosinophils Absolute Auto 0.12 K/mm3 (0.02-0.50); Eosinophils Percent Auto 2.5 % (1.0-6.0); Glucose Urine UA Negative (Negative); Hematocrit 41.4 % (40.0-54.0); Hemoglobin 14.1 g/dL (14.0-18.0); Immature Granulocyte Absolute 0.01 K/mm3 (0.00-0.00); Immature Granulocyte Percent A 0.2 % (0.0-0.0); Ketones Urine Negative (Negative); Leukocyte Esterase Ur Negative LEU/UL (Negative); Lymphocytes Absolute Auto 1.25 K/mm3 (1.10-4.50); Lymphocytes Percent Auto 26.2 % (18.0-42.0); Mean Corpuscular HGB Conc 34.1 g/dL (32-36); Mean Corpuscular Hemoglobin 30.9 pg (27.0-31.0); Mean Corpuscular Volume 90.6 fL (78.0-102.0); Monocytes Absolute Auto 0.32 K/mm3 (0.10-0.90); Monocytes Percent Auto 6.7 % (2.0-11.0); Neutrophils Absolute Auto 3.03 K/mm3 (1.70-7.20); Neutrophils Percent Auto 63.6 % (50.0-70.0); Nitrate Urine Negative (Negative); Platelet Count Result 242 K/mm3 (150-420); Protein Urine Negative (Negative); Red Blood Count 4.57 M/mm3 (4.70-6.10); Red Cell Distribution Width 13.2 % (11.6-14.4); Urobilinogen Urine 0.2 mg/dL (0.2-1.0); White Blood Count 4.8 K/mm3 (4.8-10.8); pH Urine 7.5 (5.0-8.0)
[2023-12-10 10:11] VITALS: BP 150/103; PULSE 88; RESP 16; TEMP 36.7; O2SAT 98
[2023-12-10 10:11] LABS: Add Urine Microscopic? NO
[2023-12-10 10:14] LABS: Amphetamine Screen Urine Negative (Negative); Barbiturate Screen Urine Negative (Negative); Benzodiazepines Screen Urine Positive (Negative); Cannabinoid Screen Urine Negative (Negative); Cocaine Screen Urine Negative (Negative); Methadone Screen Urine Negative (Negative); Opiate Screen Urine Negative (Negative); Phencyclidine Screen Urine Negative (Negative)
[2023-12-10 10:28] LABS: Alanine Aminotransferase 25 U/L (16-63); Albumin Level 2.8 g/dL (3.4-5.0); Alkaline Phosphatase 89 U/L (46-116); Anion Gap 7 mmol/L (4-12); Aspartate Amino Transferase 16 U/L (15-37); Bilirubin,Total 0.3 mg/dL (0.00-1.00); Blood Urea Nitrogen 9 mg/dL (7-18); Calcium 9.1 mg/dL (8.5-10.1); Carbon Dioxide 30 mmol/L (21-32); Chloride 102 mmol/L (98-108); Estimated CRCL calculation 115 ml/min; Estimated Glomerular Filt Rate > 60; Glucose 103 mg/dL (70-99); Osmolality Calculated 286 mOsm/kg (285-295); Salicylate 2.8 mg/dL (2.8-20.0); Sodium 139 mmol/L (136-145); Thyroid Stimulating Hormone 0.79 uIU/mL (0.36-3.74); Total Protein 6.9 g/dL (6.4-8.2)
[2023-12-10 10:34] LABS: Acetaminophen < 2 ug/mL (10-30); Ethanol < 3 mg/dL (0-6)
--- NOTE | 2023-12-10 10:48 | PC.NURSE ---
PT HAS BEEN MEDICALLY CLEARED, [facility] NOTIFIED, SITTER AT BEDSIDE, PT IS LYING ON STRETCHER WITHOUT DISTRESS NOTED, CALM AND COOPERATIVE. PT IS AWAITING MEDICATIONS FROM PHARMACY AT THIS TIME. WILL CONTINUE TO MONITOR.
[2023-12-10] MEDS: busPIRone HCL 5 MG TABLET 10 MG PO (10:55)
[2023-12-10] MEDS: LORazepam (*CRX) 1 MG TABLET PO ×2 (10:55→17:11)
[2023-12-10] MEDS: ESCITALOPRAM OXALATE 10 MG TABLET PO (10:56)
[2023-12-10] MEDS: OLANZapine DISPERTAB 5 MG PO (10:56)
--- NOTE | 2023-12-10 11:35 | PC.NURSE ---
[facility] AND SITTER AT BEDSIDE. PT IS BEING EVALUATED AT THIS TIME. WILL CONTINUE TO MONITOR.
[2023-12-10 12:24] VITALS: BP 145/102; PULSE 82; RESP 18; O2SAT 99
--- NOTE | 2023-12-10 13:00 | PC.NURSE ---
PT HAS BEEN EVALUATED AND [facility] IS ATTEMPTING PLACEMENT, REQUESTED A COVID TEST PRIOR TO TRANSFER. PT IS AWAITING NICOTINE PATCH FROM PHARMACY AT THIS TIME. PT REPORTS HE LAST DRANK ALCOHOL YESTERDAY AROUND 1500, REQUESTING LIBRIUM. PT WAS GIVEN ATIVAN. NO WITHDRAWL SYMPTOMS ARE NOTED. NO DIAPHORESIS, FIDGETING, NAUSEA, VOMITING, TACHYCARDIA.
[2023-12-10] MEDS: NICOTINE (*PBKC) 14 MG PATCH 14 PATCH TRANSDERM (13:08)
[2023-12-10 13:17] LABS: SARS-CoV-2 Ag Negative (Negative)
--- NOTE | 2023-12-10 13:33 | PC.NURSE ---
PAPERWORK FAXED TO [facility] [phone]. PT IS CURRENTLY RESTING ON STRETCHER WITH BLANKET AND LIGHTS OFF. SITTER AT BEDSIDE. NAD NOTED. WILL CONTINUE TO MONITOR.
--- NOTE | 2023-12-10 14:24 | PC.NURSE ---
CHART FAXED TO [facility] [phone] AND [facility] [phone]. PT CONTINUES TO REST WITHOUT DIFFICULTY AND SITTER REMAINS AT BEDSIDE. WILL CONTINUE TO MONITOR.
--- NOTE | 2023-12-10 14:34 | PC.NURSE ---
PT HAS BEEN ACCEPTED TO [facility] UNDER DR CABRERA, AWAITING FOR CALL FROM [facility] TO OBTAIN ROOM ASSIGNMENT AND TO PROVIDE REPORT. WILL CONTINUE TO MONITOR.
[2023-12-10 14:44] VITALS: BP 140/94; PULSE 91; RESP 16; O2SAT 97
--- NOTE | 2023-12-10 15:02 | PC.NURSE ---
JOSE FROM [facility] RETURNS CALL AT THIS TIME, STATING [facility] HAS NOW DECLINED PT DUE TO NO MALE BEDS AVAILABLE, [facility] IS OUT OF MALE BEDS, AND ARE AWAITING RESPONSE FROM [facility] AT THIS TIME. WILL CONTINUE TO MONITOR.
--- NOTE | 2023-12-10 16:27 | PC.NURSE ---
pt continues to rest on stretcher with sitter at bedside. pt is awaiting placement, no news from [facility] as of yet regarding placement. will continue to monitor.
--- NOTE | 2023-12-10 17:12 | PC.NURSE ---
pt was requesting some more ativan to help with his anxiety, erp was notified and medications were administered without difficulty. sitter remains at bedside. pt has eaten dinner. pt continues to await bed placement. will continue to monitor.
[2023-12-10 17:17] VITALS: BP 134/100; PULSE 90; RESP 18; TEMP 36.8; O2SAT 98
--- NOTE | 2023-12-10 17:26 | PC.NURSE ---
nova from [address] calls reporting paperwork needs faxed to [facility] in [place], paperwork faxed to [phone].
--- NOTE | 2023-12-10 19:11 | PC.NURSE ---
pt is resting on stretcher, continues to await placement. sitter at bedside. report to REX Duncan
--- NOTE | 2023-12-10 19:48 | PC.NURSE ---
Pt accepted by [facility] @[address] Dr[address] Ramirez accepting
--- NOTE | 2023-12-10 19:49 | PC.NURSE ---
Contacted [place] @194 unable to transport. Contacted [facility] @[facility] will call back if able to transport, getting supervisor denture department approval
--- NOTE | 2023-12-10 19:51 | PC.NURSE ---
[facility] unable to transport pt will continue to inquire with other services
--- NOTE | 2023-12-10 20:01 | PC.NURSE ---
[facility] unable to transport
[2023-12-10 21:47] VITALS: BP 147/107; PULSE 86; RESP 18; TEMP 36.7; O2SAT 98
[2023-12-11] MEDS: LORazepam (*CRX) 1 MG TABLET PO (02:45)
--- NOTE | 2023-12-11 02:46 | PC.NURSE ---
pt reports anxiety and dificulty sleeping. Given ativan to decrease anxiety. Pt also given sandwich as he stated he was hungry.
[2023-12-11 03:52] VITALS: BP 146/90; PULSE 69; RESP 16; TEMP 36.6; O2SAT 97
--- NOTE | 2023-12-11 05:21 | PC.NURSE ---
nurse to nurse report given @ 1943 to Adeline Harmonsanjeev
--- NOTE | 2023-12-11 07:12 | PC.NURSE ---
REPORT FROM REX KENNY AT THIS TIME. PT IS RESTING ON STRETCHER, AWAKE. PT IS CALM AND AWARE OF PLAN OF CARE. BREAKFAST TRAY HAS BEEN ORDERED. PT [place] A[place] [facility] [facility], HOWEVER NO EMS SO FAR IS AVAILABLE TO TRANSPORT PT, WILL CONTINUE TO ATTEMPT TO FIND TRANSPORT TODAY. PT REPORTS HE FEELS THE SAME YESTERDAY . SITTER REMAINS AT BEDSIDE. WILL CONTINUE TO MONITOR.
--- NOTE | 2023-12-11 07:33 | PC.NURSE ---
BED LINENS CHANGED, PT UP TO RR WITHOUT INCIDENT, SODA PROVIDED REQUESTED. LIGHTS ARE ON AND PT IS LYING ON STRETCHER. PT DECLINES TV TURNED ON OR LIGHTS OFF AT THIS TIME. PT IS COOPERATIVE. WILL CONTINUE TO MONITOR. SITTER AT BEDSIDE.
--- NOTE | 2023-12-11 07:53 | PC.NURSE ---
PT IS EATING BREAKFAST AT THIS TIME. PT TO SHOWER AFTER EATING THIS MORNING. SITTER REMAINS AT BEDSIDE. WILL CONTINUE TO MONITOR.
[2023-12-11 08:06] VITALS: BP 150/112; PULSE 94; RESP 20; TEMP 36.3; O2SAT 97
--- NOTE | 2023-12-11 08:33 | PC.NURSE ---
PT HAS EATEN AND SHOWERED AND HAS RETURNED TO ROOM WITH SITTER AT BEDSIDE. PT IS CALM AND COOPERATIVE. WILL CONTINUE TO MONITOR.
--- NOTE | 2023-12-11 08:34 | PC.NURSE ---
Vitals signs were taken & took pt upstairs for a shower. He was given new scrubs and socks. No safety concerns during this time or during showering. Pt is stating that he is wanting his morning meds.
--- NOTE | 2023-12-11 09:30 | PC.NURSE ---
Patient is sitting on side of bed feeling agitated. Stating that he wants his morning meds. He has began pacing around his room, as well.
--- NOTE | 2023-12-11 09:38 | PC.NURSE ---
ABRAHAM FROM [facility] HAS CALLED CHECKING TRANSFER STATUS, SHE IS UPDATED THAT WE HAVE NOT BEEN SUCCESSFUL IN SECURING TRANSPORT [place]. SHE REPORTS SHE WILL INFORM [facility], SEE IF THEY HAVE A TRANSPORT SERVICE, AND IF NOT ATTEMPT TO FIND PLACEMENT ELSEWHERE. PT IS SITTING ON STRETCHER WITH SITTER AT BEDSIDE. PT IS AWAITING MEDICATIONS FROM PHARMACY AT THIS TIME. WILL CONTINUE TO MONITOR.
--- NOTE | 2023-12-11 10:02 | PC.NURSE ---
ABRAHAM FROM [facility] CALLS, REPORTING [facility] HAS NOW DECLINED THE PT DUE TO IT BEING 16 HOURS AFTER BEING ACCEPTED AND PT STILL NO EN ROUTE TO THEIR FACILITY. ABRAHAM SPOKE WITH JALYN AND PAPERWORK WAS FAXED OVER AT THIS TIME TO [phone]. SITTER REMAINS AT BEDSIDE.
--- NOTE | 2023-12-11 10:18 | PC.NURSE ---
Patient states, I am pissed off and I just want to get up and leave this hospital.
[2023-12-11] MEDS: OLANZapine 2.5 MG TABLET 5 MG PO (10:31)
[2023-12-11] MEDS: hydrOXYzine HCL 25 MG TABLET PO (10:32)
[2023-12-11] MEDS: ESCITALOPRAM OXALATE 10 MG TABLET PO (10:32)
[2023-12-11] MEDS: busPIRone HCL 5 MG TABLET 10 MG PO (10:33)
[2023-12-11] MEDS: CELECOXIB 100 MG CAPSULE 200 MG PO (10:33)
[2023-12-11 10:34] VITALS: PULSE 97
[2023-12-11] MEDS: PROPRANOLOL HCL 20 MG TABLET PO ×2 (10:34→13:07)
--- NOTE | 2023-12-11 10:44 | PC.NURSE ---
PT WAS REQUESTING [facility]RIUM FOR ETOH WITHDRAW. PT SPOKE WITH ERP AND [facility]RIUM WAS ORDERED. NO CLINICAL SIGNS OF WITHDRAW ARE NOTED AT THIS TIME. PT REPORTS HE IS ANXIOUS AND HAS HI ANXIETY ABOUT THE POSSIBILITY OF GOING INTO WITHDRAW. PT REPORTS HE LAST DRANK ON 12/08/23 AROUND 1500, STATES HE IS NORMALLY A DAILY DRINKER, HAS NEVER GONE INTO WITHDRAW BEFORE. NAD NOTED. SITTER REMAINS AT BEDSIDE. WILL CONTINUE TO MONITOR.
[2023-12-11] MEDS: chlordiazePOXIDE (*CRX) 25 MG CAPSULE PO ×2 (10:52→14:26)
--- NOTE | 2023-12-11 11:15 | PC.NURSE ---
Pt is resting comfortably in bed. He states that he is feeling much more relaxed after receiving his meds. No safety concerns at this time.
[2023-12-11 11:53] VITALS: BP 150/92; PULSE 78; RESP 18; TEMP 36.8; O2SAT 99
--- NOTE | 2023-12-11 12:07 | PC.NURSE ---
pt has eaten his lunch and is lying on stretcher in exam room with sitter at bedside. nad noted pt denies any needs or complaints at this time. he continues to await placement. will continue to monitor.
--- NOTE | 2023-12-11 12:43 | PC.NURSE ---
Pt on phone with [facility] [place]
--- NOTE | 2023-12-11 12:48 | PC.NURSE ---
nova ocampo called and spoke with pt, reports she will present his case to the provider and return call with decision. will continue to monitor.
[2023-12-11] MEDS: NICOTINE (*PBKC) 14 MG PATCH 1 PATCH TRANSDERM (13:06)
[2023-12-11 13:07] VITALS: PULSE 78
[2023-12-11] MEDS: GABAPENTIN 300 MG CAPSULE 600 MG PO (13:07)
--- NOTE | 2023-12-11 13:34 | PC.NURSE ---
pt is lying on stretcher with lights off, awaiting decision from [facility] at this time. sitter remains at bedside. will continue to monitor. nad noted. pt is cooperative.
--- NOTE | 2023-12-11 14:06 | PC.NURSE ---
Pt is resting comfortably on the stretcher watching tv w/ lights dimmed. No safety concerns at this time/.
--- NOTE | 2023-12-11 14:27 | PC.NURSE ---
nova from [facility] has called, reports dr bledsoe has accepted pt for transfer. to await terrence to call and obtain report prior to room assignment and transfer. pt is updated on status. pt is lying on stretcher watching tv at this time. nad noted. sitter at bedside. will continue to monitor.
--- NOTE | 2023-12-11 15:10 | PC.NURSE ---
Pt is resting comfortably on the stretcher watching tv w/ lights dimmed. No safety concerns at this time
[2023-12-11 16:00] VITALS: BP 152/94; PULSE 70; RESP 16; TEMP 36.8; O2SAT 98
== END 2023-12-11 16:10 ==
PROVIDERS: Family Medicine; Emergency Provider Emergency Medicine
DX: R45.851 Suicidal ideations (principal); F41.8 Other specified anxiety disorders; F31.9 Bipolar disorder, unspecified; F10.20 Alcohol dependence, uncomplicated
CPT/HCPCS: 36415; 80053; 80307; 81003; 84443; 85025; 87426; 93005; 99285; A9270